=== PATIENT | female | born 1995 | race Caucasian/White ===

== ENCOUNTER 2017-08-03 18:44 | Emergency (ER) | payer BC, SELFPAY | END 2017-08-03 22:00 | disposition left against medical advice (07) | LOC: ER 21:59 | PROVIDERS: Emergency Provider Emergency Medicine; Family Provider Family Medicine | DX: Z53.29 Procedure and treatment not carried out because of patient's decision for other reasons (principal) | CPT/HCPCS: 99211 ==

== ENCOUNTER 2019-08-10 04:38 | Inpatient (IN) ==
--- NOTE | 2019-08-10 05:16 | Progress Note ---
Internal Medicine - PN: Subj *Date: 08/10/19 *Time: 05:12 Interval history: This 24-year-old 1, para 0, Ab0 white female has had care in [place] ( records from there have been entered). She states that she began leaking fluid approximately 2 hours prior to arriving here and has been claudia regularly and strongly since. She states that her care has been uneventful and that she is GBS negative. EDC is 08/13/2019 (39-4/7 weeks). Medical and surgical histories are completely negative. Cervix is completely effaced, 4 cm, with a bulging bag and a presenting vertex at 0 station. AmniSure has been done (results pending). Impression: Active labor at term. Plan is for an epidural and anticipated vaginal delivery. Exam I & O for Last 24 hours: Intake & Output 08/07/19 08/08/19 08/09/19 08/10/19 11:59 11:59 11:59 11:59 Weight 144 lb
[2019-08-10 05:18] LABS: Microscopic, Urine URINE MICROSCOPIC (MICROSCOPIC)
[2019-08-10 05:27] LABS: Basophils % 0.1 % (0.1-2.0); Eosinophils # 0.1 K/mm3 (0.0-0.4); Eosinophils % 0.6 % (0.1-12.0); Hematocrit 36.2 % (37.0-47.0); Hemoglobin 12.4 g/dL (12.2-16.2); Lymphocytes # 2.1 K/mm3 (0.7-4.5); Lymphocytes % 16.5 % (10-50); Mean Corpuscular HGB Conc 34.2 g/dL (31.8-35.4); Mean Corpuscular Volume 84.4 fl (81-99); Mean Platelet Volume 9.7 fl (7.4-10.4); Monocytes # 0.6 K/mm3 (0.1-1.0); Monocytes % 4.5 % (1.7-9.3); Neutrophils # 10.1 K/mm3 (1.8-7.8); Neutrophils % 78.3 % (37.0-80.0); Platelet Count 280 K/mm3 (142-424); Red Blood Count 4.29 M/mm3 (4.20-5.40); Red Cell Distribution Width 13.6 % (11.5-17.5); White Blood Count 12.8 K/mm3 (4.8-10.8)
[2019-08-10 05:43] LABS: Appearance,Urine CLEAR (Clear); Bilirubin,Urine Negative (Negative); Blood, Urine Negative (Negative); Color,Urine YELLOW (Yellow); Glucose,Urine (UA) Negative (Negative); Ketones,Urine Negative (Negative); Leukocyte Esterase,Urine 1+ (Negative); Protein,Urine Negative (Negative); Urobilinogen,Urine 0.2 EU/dl (0.2)
[2019-08-10 05:43] LABS: Anion Gap 16.8 mEq/L (5-15); Calcium 8.1 mg/dL (8.5-10.1)
[2019-08-10 05:46] LABS: Bacteria,Urine 1+ /lpf
[2019-08-10 05:57] LABS: Amphetamine/Metha Screen,Urine Negative ng/mL (<1000); Barbiturates Screen,Urine Negative ng/mL (<200); Benzodiazepines Screen,Urine Negative ng/mL (<200); Cannabinoid Screen,Urine Negative ng/mL (<50); Cocaine Screen,Urine Negative ng/mL (<300); Methadone Screen,Urine Negative ng/mL (<300); Opiate Screen,Urine Negative ng/mL (<300); Phencyclidine Screen,Urine Negative ng/mL (<25)
--- NOTE | 2019-08-10 06:16 | Progress Note ---
Internal Medicine - PN: Subj *Date: 08/10/19 *Time: 06:14 (Epidural is now in situ and working well. Cervix is now comple tely effaced, 5 cm, with the presenting vertex at 0 station. The baby experienced a deep deceleration to 60 bpm but with oxygen and appropriate turning, baseline is now good at 1 20-1 30 with good variability and no decelerations. Amnioinfusion has been begun.) Exam Vital signs and Labs for Last 24 Hours: Laboratory Results - last 24 hr 08/10/19 04:45: Urine Color Yellow, Urine Appearance Clear, Urine pH 7.0, Ur Specific Ames 1.010, Urine Protein Negative, Urine Glucose (UA) Negative, Urine Ketones Negative, Urine Blood Negative, Urine Nitrate Negative, Urine Bilirubin Negative, Urine Urobilinogen 0.2, Ur Leukocyte Esterase 1+ A, Urine WBC 5-10, Ur Squamous Epith Cells 5-10, Urine Bacteria 1+ 08/10/19 04:45: Urine Opiates Screen Negative, Urine Methadone Screen Negative, Ur Barbituates Screen Negative, Ur Phencyclidine Scrn Negative, Ur Amphetamines Screen Negative, U Benzodiazepines Scrn Negative, Urine Cocaine Screen Negative, U Marijuana (THC) Screen Negative 08/10/19 04:55: WBC 12.8 H, RBC 4.29, Hgb 12.4, Hct 36.2 L, MCV 84.4, MCH 28.9, MCHC 34.2, RDW 13.6, Plt Count 280, MPV 9.7, Neut % (Auto) 78.3, Lymph % (Auto) 16.5, Hendry % (Auto) 4.5, Eos % (Auto) 0.6, Baso % (Auto) 0.1, Neut # (Auto) 10.1 H, Lymph # (Auto) 2.1, Hendry # (Auto) 0.6, Eos # (Auto) 0.1, Baso # (Auto) 0.0 08/10/19 04:55: Sodium 135 L, Potassium 3.8, Chloride 104, Carbon Dioxide 18 L, Anion Gap 16.8 H, BUN 4 L, Creatinine 0.56, Estimated Creat Clear 162, Estimated GFR 135, Est GFR ( Amer) 164, Glucose 89, Calcium 8.1 L I & O for Last 24 hours: Intake & Output 01/12/2008/08/19 08/09/19 08/10/19 11:59 11:59 11:59 11:59 Weight 144 lb
--- NOTE | 2019-08-10 06:25 | Progress Note ---
[facility] Anesthesia Checklist - Patient Identification Patient Identification: Arm Band - Structural Data Admitted From: Inpatient Planned Operative Procedure/s: labor epidural Consent for Planned Operative Procedure(s) Verified: Yes Verified Documents: History and Physical - Additional verifications Anesthesia Reactions: No - Airway Assessment C-Spine Mobility Assessed: Yes TMJ Mobility Assessed: Yes Dentition: Good Dentition - Neurological Assessment Level of Consciousness: Awake, Alert - Anesthesia Plan Anesthesia Risk discussed: Yes Anesthesia Plan: Verified ASA Class: II Anesthesia Type: Epidural [facility] History I have reviewed the patient's past medical history: Yes Medical History: Denies:: Diabetes Mellitus Type 1, Diabetes Mellitus Type 2 *Have you ever received a pneumonia vaccine?: No *Have you received a flu vaccine this season?: No Anesthesia experience/problems:: nac Other Surgeries: Yes: No Previous Surgery - *Social History Smoking Status: Current every day smoker Tobacco Type: cigarettes # Packs/Day (cigarettes): 1 Alcohol Intake: former Alcohol Intake Frequency:: holidays/special occasions only Substance Use Type: marijuana *Occupational Status:: employed Housing: house *Travel in the last 8 weeks: None Family Hx:: No significant family history
--- NOTE | 2019-08-10 15:40 | Procedure Note ---
- Delivery Note Delivery Date:: 08/10/19 Delivery Time:: 09:41 Anesthesia Type: Epidural Was labor medically induced?: No Gestational age (weeks): 39 Infant delivered prior to 39 weeks?: No Gender: Female at 1 minute: 7 at 5 minutes: 9 Delivery Procedure:: Spontaneous vaginal delivery of liveborn female over intact perineum. Delivery uncomplicated No nuchal cord or shoulder dystocia with delivery placed in POLLY with mother immediately after umbilical cord clamped/cut, with standard nursing assessment performed Apgars: 7 & 9 Placenta spontaneously expressed and examined; noted to be complete/intact. Vulva, vagina, and cervix inspected; 1st degree perineal and right labial laceration repaired with 2-0 vicryl EBL: 300 cc All sponge/needle/instrument counts correct at conclusion of procedure Disposition: Mom/baby stable to recovery in [facility]
[2019-08-11 06:57] LABS: Hemoglobin 9.5 g/dL (12.2-16.2)
--- NOTE | 2019-08-11 08:56 | Progress Note ---
Internal Medicine - PN: Subj *Date: 08/11/19 *Time: 08:53 Interval history: PPD #1 No complaints Tolerating regular diet, ambulating and voiding without difficulty Lochia appropriate Asymptomatic with anemia Exam Vital signs and Labs for Last 24 Hours: Temp Pulse Resp BP Pulse Ox 98.8 F 76 18 114/75 99 08/11/19 08:10 08/11/19 08:10 08/11/19 08:10 08/11/19 08:10 08/11/19 08:10 Laboratory Results - last 24 hr 08/11/19 06:34: Hgb 9.5 L, Hct 29.0 L I & O for Last 24 hours: Intake & Output 08/08/19 08/09/19 08/10/19 08/11/19 11:59 11:59 11:59 11:59 Weight 144 lb Microbiology Reports for the Last 24 Hours: Microbiology 08/10/19 04:45 Urine,Clean Catch Urine Culture - Preliminary Narrative: CONSTITUTIONAL: no acute distress HEENT: mucous membranes moist PULMONARY: breathing unlabored without audible wheezes CV: no tachycardia or visible JVD; normal LE peripheral pulses ABD: soft, NT/ND, no guarding : fundus firm at/below umbilicus SKIN: no visible rash or lesions EXT: 1+ edema LEs NEURO: alert/oriented, no altered mental status PSYCH: appropriate mood and demeanor without visible anxiety/depression Assessment and Plan - Assessment and plan all Dx Assessment and Plan for all problems:: PPD #1 Routine care PNV with FeSO4 Anticipate discharge tomorrow
--- NOTE | 2019-08-12 09:58 | Discharge Summary ---
General - General Admission date:: 08/10/19 Discharge date: 08/12/19 HPI HPI: S/P normal course uncomplicated Discharged home on PPD #2 in stable condition Ambulating and voiding without difficulty Tolerating regular diet Lochia appropriate and pain control sufficient Advised that she may f/u with primary OB or our office for care Hospital Course Hospital Course: per HPI Rhogam Administration: Not Indicated Objective Vital signs: Temp Pulse Resp BP Pulse Ox 98.2 F 80 20 109/66 L 100 08/11/19 16:30 08/11/19 16:30 08/11/19 16:30 08/11/19 16:30 08/11/19 16:30 Narrative: CONSTITUTIONAL: no acute distress HEENT: mucous membranes moist PULMONARY: breathing unlabored without audible wheezes CV: no tachycardia or visible JVD; normal LE peripheral pulses ABD: soft, NT/ND, no guarding : fundus firm at/below umbilicus SKIN: no visible rash or lesions EXT: 1+ edema LEs NEURO: alert/oriented, no altered mental status PSYCH: appropriate mood and demeanor without visible anxiety/depression Results Labs on day of discharge: Labs from last 24 hours 08/10/19 04:55 Rubella IgG Antibody 6.77 Preliminary micro results at discharge 08/10/19 04:45 Urine Culture - Preliminary Urine,Clean Catch DS: Diagnosis - Discharge Diagnosis (1) Active labor at term Status: Acute (2) Anemia associated with acute blood loss Status: Acute (3) with care elsewhere Status: Acute (4) Vaginal delivery Status: Acute Discharge Plan - Patient Discharge Instructions ACTIVITY: Limited activity DIET: regular diet Additional Instructions: NOTHING IN THE VAGINA FOR 6 WEEKS NO HEAVY LIFTING NO STRENUOUS ACTIVITY. Patient Instructions: Depression, Hemorrhage, [facility] Post Discharge Instructions - Follow up Plan Follow up with: Nate Zimmer [Referring] - 08/26/19 2:45 pm (arrive at 1430) Disposition: Home, Self-Longterm Medications: Home Medications Medication Instructions Recorded Confirmed Type Famotidine [Pepcid 20mg Tablet] 20 mg PO BID 08/10/19 08/10/19 History Prescriptions/Medication Reconciliation: Continued Famotidine [Pepcid 20mg Tablet] 20 mg PO BID - Problem Reconciliation Problems Reviewed?: Yes
[2019-08-12 10:47] VITALS: BP 114/57
== END 2019-08-12 11:02 | disposition home or self-care (01) | DRG 807 ==
LOC: OBOUT 04:38 → OB 04:41
PROVIDERS: ADMIT Obstetrics & Gynecology; ATTEND Obstetrics & Gynecology
CPT/HCPCS: C1758

== ENCOUNTER → 2021-08-16 19:18 | Outpatient (CLI) | payer OTHER, SELFPAY | PROVIDERS: Visit Provider Nurse Practitioner Family | DX: Z20.822 Contact with and (suspected) exposure to COVID-19 (principal); J02.9 Acute pharyngitis, unspecified | CPT/HCPCS: C9803; U0003; U0005 ==

== ENCOUNTER 2021-10-14 16:26 | Emergency (ER) | payer OTHER, SELFPAY ==
[2021-10-14 16:27] VITALS: BP 119/76; PULSE 94; RESP 18; TEMP 37; O2SAT 99; BMI 17.7
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
[2021-10-14 18:23] VITALS: BP 112/73; PULSE 95; O2SAT 97
--- NOTE | 2021-10-14 18:38 | PC.NURSE ---
Patient to radiology with dialysis tech
--- NOTE | 2021-10-14 18:42 | PC.NURSE ---
patient back from Radiology
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
[2021-10-14 19:44] VITALS: BP 114/72; PULSE 92; RESP 18; TEMP 37; O2SAT 97
== END 2021-10-14 19:46 | disposition home or self-care (01) ==
PROVIDERS: Emergency Provider Emergency Medicine; PCP Family Medicine
DX: M54.6 Pain in thoracic spine (principal); Z3A.11 11 weeks gestation of pregnancy; V47.0XXA Car driver injured in collision with fixed or stationary object in nontraffic accident, initial encounter; Y92.413 State road as the place of occurrence of the external cause
CPT/HCPCS: 71046; 72072; 99283

== ENCOUNTER 2022-08-01 14:36 | Emergency (ER) | payer OTHER, SELFPAY ==
[2022-08-01 16:03] VITALS: BP 120/60; PULSE 82; RESP 18; TEMP 36.8; O2SAT 98; BMI 22.3
--- NOTE | 2022-08-01 16:31 | EXP.UTC ---
Discharge Plan Disposition Patient Disposition: Home, Self-Care Condition: Good Prescriptions Prescriptions: No Action azithromycin 250 mg tablet 250 mg PO QDAY 5 Days Qty: 6 0RF Rx Instructions: ii tabs day one and i tab days 2-5 albuterol sulfate 90 mcg/actuation HFA aerosol inhaler 2 puff INHALATION Q6H PRN (Reason: wheezing) 7 Days Qty: 6.7 0RF Rx Instructions: administer with spacer Referrals Follow up/Referrals: Kaushal Collins MD [Primary Care Provider] - See instructions Activity Restrictions/Add. Instructions Additional Instructions/Restrictions: *Monitor Temp, Over the counter Motrin or Tylenol as directed/as needed Tylenol every 4 hours and Motrin every 6 hours (as long as your family doctor has told you that you can take it) for fever or pain. and straight to ER if unable to lower temp less than 101.0 after medication given *Warm salt water gargles may help to soothe the throat *Throat Lozenges? *Warm fluids like tea with honey may help to soothe the throat? *Sleep elevated *Humidifier/Vaporizer Follow up IMMEDIATELY for new or worsening symptoms or no Noticeable improvement over the next 48-72 hours. 911 for difficulty breathing or swallowing You were tested for today for Upper Respiratory Panel with COVID19 your test result should be back in the next 24-48 hours, you may check your results on the [facility] [address] [facility] Clinical Impressions Clinical Impression: Viral syndrome Instructions Patient Instructions: DI for Viral Syndrome Discharge ED Provider: Katrin Duncan [facility] HPI General Stated complaint: covid test headache body aches Mode of Arrival: Ambulatory Source of Information: Patient Limitations: No Limitations Time Seen by Provider: 08/01/22 16:31 Description of Symptoms (Recalled from Triage Doc. by RN): pt comes in with c/o no taste or smell, vomitting, headache, back ache. symptoms began a few days ago HEENT Symptoms (Recalled from RN notes): Yes Resp Symptoms (Recalled from RN notes): Yes Skin Symptoms (Recalled from RN notes): No MS Symptoms (Recalled from RN notes): No Functional Status (Recalled from RN notes): n/a History of Present Illness Provider Complaint: Patient states that she feels like she did when she had COVID States that she has been not able to taste or smell anything, nausea vomiting headache and achy like feeling in her back States that she wanted to get tested for COVID Related Data Previous Rx's Medication Instructions Recorded albuterol sulfate 90 mcg/actuation 2 puff inhalation Q6H PRN wheezing 08/16/21 aerosol inhaler 7 days #6.7 grams azithromycin 250 mg tablet 250 mg PO QDAY resp infection 5 08/16/21 days #6 tabs Allergies Allergy/AdvReac Type Severity Reaction Status Date / Time No Known Allergies Allergy Verified 08/01/22 16:06 Worker's Comp Is this a Worker's Comp case?: No [facility] Disclaimer: The information contained in this section may have been updated after the patient was seen, as this information can be updated by other users. Social History Smoking Status: Current every day smoker tobacco type: cigarettes packs per day: 1 alcohol intake: former substance use type: marijuana current occupational status: employed Travel in the last 8 weeks: None household members: significant other housing: house ROS Obtained: Yes All systems reviewed & no additional complaints except as documented and Yes Systems reviewed as appropriate & no additional complaints except as documented Constitutional Constitutional: Reports system reviewed and no additional complaints, except as documented, Reports as per HPI, Reports body ache and Reports headache(s) ENT Ears, Nose, Mouth, and Throat: Reports system reviewed and no additional complaints, except as documented, Reports as per HPI, Reports headache(s) and Reports other (no taste or smel
[2022-08-01 16:40] LABS: UTC Pregnancy Test, Urine Negative (Negative)
[2022-08-01 16:41] LABS: UTC Influenza A Antigen Negative (Negative); UTC Influenza B Antigen Negative (Negative)
[2022-08-01 17:12] VITALS: BP 120/60; PULSE 82; RESP 18; TEMP 36.8
== END 2022-08-01 17:14 | disposition home or self-care (01) ==
PROVIDERS: Emergency Provider Nurse Practitioner; PCP Family Medicine
DX: B34.9 Viral infection, unspecified (principal)
CPT/HCPCS: 81025; 87804; 99212; C9803; G0463; U0003; U0005

== ENCOUNTER 2022-08-06 15:55 | Emergency (ER) | payer OTHER, SELFPAY ==
--- NOTE | 2022-08-06 18:23 | PC.NURSE ---
YARIEL PIMENTEL at
--- NOTE | 2022-08-06 18:26 | CT_ITS ---
PROCEDURE INFORMATION: Exam: CT Neck With Contrast Exam date and time: 08/06/2022 8:15 PM Age: 27 years old Clinical indication: Throat pain; Patient HX: Recent covid; Additional info: Pain, voice chainge, fever, swelling TECHNIQUE: Imaging protocol: Computed tomography of the neck with contrast. Radiation optimization: All CT scans at this facility use at least one of these dose optimization techniques: automated exposure control; mA and/or kV adjustment per patient size (includes targeted exams where dose is matched to clinical indication); or iterative reconstruction. Contrast material: ISOVUE; Contrast volume: 75 ml; Contrast route: IV; COMPARISON: No relevant prior studies available. FINDINGS: Pharynx: There is significant soft tissue edema and enhancement of the bilateral adenoid and tonsillar soft tissues compatible with tonsillopharyngitis. No loculated fluid collection seen to suggest abscess. Larynx: Unremarkable. Epiglottis is normal. Prevertebral and retropharyngeal spaces: Unremarkable. Salivary glands: Normal. Glands are normal in size. Thyroid: Normal. No enlarged or calcified nodules. Lymph nodes: Moderate bilateral jugular chain lymphadenopathy noted. Trachea: Visualized trachea is unremarkable. Lungs: Unremarkable as visualized. Bones/joints: Unremarkable. No acute fracture. Soft tissues: Surrounding soft tissues appear unremarkable. Paranasal sinuses: There is moderate mucosal thickening in the bilateral maxillary sinuses. IMPRESSION: Findings of bilateral tonsillopharyngitis with associated moderate jugular chain lymphadenopathy. No evidence of abscess. Moderate findings of chronic bilateral maxillary sinusitis incidentally noted.
[2022-08-06 18:30] VITALS: BP 104/74; PULSE 103; RESP 18; TEMP 37.4; O2SAT 98; BMI 25.7
[2022-08-06 18:46] LABS: Influenza A, PCR Not Detected (NotDetected); Influenza B, PCR Not Detected (NotDetected)
--- NOTE | 2022-08-06 18:58 | HMH.EDGENADL ---
Discharge Plan Disposition Patient Disposition: Home, Self-Care Condition: Good Prescriptions Prescriptions: New clindamycin HCl 300 mg capsule 300 mg PO BID 10 Days Qty: 20 0RF No Action azithromycin 250 mg tablet 250 mg PO QDAY 5 Days Qty: 6 0RF Rx Instructions: ii tabs day one and i tab days 2-5 albuterol sulfate 90 mcg/actuation HFA aerosol inhaler 2 puff INHALATION Q6H PRN (Reason: wheezing) 7 Days Qty: 6.7 0RF Rx Instructions: administer with spacer Referrals Follow up/Referrals: Kaushal Collins MD [Primary Care Provider] - See instructions Activity Restrictions/Add. Instructions Additional Instructions/Restrictions: You were evaluated in the emergency department today. Please cotton picker your prescription for antibiotics at the pharmacy and take the full course as prescribed. Follow-up with your primary care provider over the next 48 hours. Take Tylenol and ibuprofen at home as needed for pain and fever. Return to the emergency department for any new or worsening symptoms. Clinical Impressions Clinical Impression: Tonsillopharyngitis Instructions Patient Instructions: DI for Pharyngitis/Tonsillopharyngitis -- Adult Discharge ED Provider: Renée George General Adult HPI General Chief complaint: Upper Respiratory Infection Stated complaint: covid + sore throat, body aches, Time Seen by Provider: 08/06/22 18:14 History of Present Illness HPI narrative: This patient is a 27-year-old female presented to the emergency department for evaluation of severe sore throat. She states that she developed upper respiratory symptoms initially to 2 weeks ago, and approximately week ago she tested positive for COVID-19. She states that she had been doing better and had actually gotten her taste and smell back and was having no pain yesterday, but today she woke up with really severe sore throat. She states that she has had difficulty swallowing and has noted voice changes. She states that she feels like her throat is extremely swollen. She states that she is also had fevers today, which she had not been having. Nothing seems to make her symptoms better or worse. Related Data Previous Rx's Medication Instructions Recorded albuterol sulfate 90 mcg/actuation 2 puff inhalation Q6H PRN wheezing 08/16/21 aerosol inhaler 7 days #6.7 grams azithromycin 250 mg tablet 250 mg PO QDAY resp infection 5 08/16/21 days #6 tabs clindamycin HCl 300 mg capsule 300 mg PO BID 10 days #20 caps 08/06/22 Allergies Allergy/AdvReac Type Severity Reaction Status Date / Time No Known Allergies Allergy Verified 08/01/22 16:06 [facility] Disclaimer: The information contained in this section may have been updated after the patient was seen, as this information can be updated by other users. Social History Smoking Status: Current every day smoker tobacco type: cigarettes packs per day: 1 alcohol intake: former substance use type: marijuana current occupational status: employed Travel in the last 8 weeks: None household members: significant other housing: house ROS Obtained: Yes All systems reviewed & no additional complaints except as documented 14 point review of systems obtained and negative except as mentioned in HPI. Physical Exam General General appearance: alert and in no apparent distress Head Head exam: atraumatic and normocephalic Eye Eye exam: Present normal appearance, PERRL and EOMI ENT ENT exam: Present mucous membranes moist Expanded ENT Exam External ear exam: Present normal external inspection and other (Slightly muffled voice) Nasal speculum exam: Bilateral: normal Open Mouth Image: 1. Tonsillar swelling with uvular deviation to patient's left Neck Neck exam: Present normal inspection and full ROM Chest Chest inspection: Present normal inspection Respiratory Respiratory exam: Present normal lung sounds bilater
[2022-08-06 19:14] VITALS: BP 111/57; PULSE 80; O2SAT 98
[2022-08-06 19:15] LABS: Coronavirus 19, PCR Detected (NotDetected)
[2022-08-06 19:16] LABS: Basophils # 0.1 K/mm3 (0-0.2); Basophils % 0.3 % (0.1-2.0); Eosinophils # 0.2 K/mm3 (0.0-0.4); Eosinophils % 1.1 % (0.1-12.0); Hemoglobin 12.4 g/dL (12.2-16.2); Lymphocytes % 6.5 % (10-50); Mean Corpuscular HGB Conc 33.5 g/dL (31.8-35.4); Mean Corpuscular Hemoglobin 28.7 pg (27.0-31.2); Mean Corpuscular Volume 85.8 fl (81-99); Mean Platelet Volume 8.1 fl (7.4-10.4); Monocytes # 0.5 K/mm3 (0.1-1.0); Monocytes % 3.2 % (1.7-9.3); Neutrophils # 13.8 K/mm3 (1.8-7.8); Neutrophils % 88.8 % (37.0-80.0); Platelet Count 343 K/mm3 (142-424); Red Blood Count 4.31 M/mm3 (4.20-5.40); Red Cell Distribution Width 13.5 % (11.5-17.5); White Blood Count 15.5 K/mm3 (4.8-10.8)
[2022-08-06 19:18] LABS: MANUAL DIFFERENTIAL MANUAL DIFFERENTIAL (MANUAL DIFF)
[2022-08-06 19:26] LABS: Chloride 107 mmol/L (98-107); Potassium 3.6 mmoL/L (3.5-5.1); Sodium 135 mmol/L (136-145)
[2022-08-06 19:29] LABS: Alanine Aminotransferase 22 U/L (12-78); Albumin Level 3.7 g/dl (3.5-5.0); Albumin/Globulin Ratio 1.3 (1.1-1.8); Alkaline Phosphatase 63 U/L (38-126); Anion Gap 10.6 mEq/L (5-15); Aspartate Amino Transferase 29 U/L (14-36); Bilirubin,Total 0.4 mg/dl (0.2-1.3); Blood Urea Nitrogen 6 mg/dl (7-17); Calcium 8.2 mg/dl (8.4-10.2); Carbon Dioxide 21 mmol/L (22.0-30.0); Creatinine Clearance Estimated 149 mL/min (50-200); Estimated Glomerular Filt Rate 122 ml/min (>60); GFR (African American) 147 ML/MIN (>60); Globulin 2.9 g/dL (1.3-3.2); Glucose 92 mg/dl (74-100); Total Protein,Serum 6.6 g/dl (6.3-8.2)
[2022-08-06 19:33] LABS: C-Reactive Protein 45.8 mg/L (0-4)
[2022-08-06 19:34] LABS: Lactic Acid 1.3 mmol/L (0.7-2.1)
[2022-08-06 19:36] LABS: Lymphocytes % 8 % (10-50); Monocytes % 1 % (2-9); Neutrophils % 91 % (42-76); Platelet Estimate Normal; RBC Morphology Normal; Total Cells Counted 100
[2022-08-06 19:52] LABS: HCG Qualitative, Serum Negative (Negative)
[2022-08-06 19:54] LABS: Strep Scrn Group A (Rapid) Negative (Negative)
--- NOTE | 2022-08-06 19:54 | PC.NURSE ---
pt in bed, nothing needed, family at bedside
[2022-08-06 20:45] LABS: Erythrocyte Sedimentation Rate 18 mm/hr (0-20)
[2022-08-06 20:59] VITALS: BP 98/47; PULSE 115; RESP 18; TEMP 36.7; O2SAT 98
== END 2022-08-06 21:15 | disposition home or self-care (01) ==
PROVIDERS: Emergency Provider Emergency Medicine; PCP Family Medicine
DX: U07.1 COVID-19 (principal); J03.90 Acute tonsillitis, unspecified; F17.210 Nicotine dependence, cigarettes, uncomplicated; F12.90 Cannabis use, unspecified, uncomplicated; R50.9 Fever, unspecified
CPT/HCPCS: 36415; 70491; 80053; 83605; 84703; 85007; 85025; 85651; 86140; 87430; 96361; 96374; 96375; 99285; C9803; J2405; Q9967; U0003; U0005

== ENCOUNTER 2022-08-25 08:04 | Emergency (ER) | payer OTHER, SELFPAY ==
[2022-08-25 08:13] VITALS: BP 114/71; PULSE 99; RESP 20; TEMP 36.9; O2SAT 95; BMI 21.2
--- NOTE | 2022-08-25 08:18 | XR_ITS ---
FINAL REPORT CLINICAL HISTORY: sob-- congestion FINDINGS: PA and lateral views of the chest are obtained. There is no prior exam for comparison. The cardiac and mediastinal silhouettes are within normal limits. The lungs are clear. There is no pleural effusion, pneumothorax, or acute osseous abnormality. IMPRESSION: No radiographic evidence of acute cardiac or pulmonary disease. Reviewed, Interpreted and Dictated by Cathie Nair MD Transcribed by Edd Dobbs Authenticated and [facility]
--- NOTE | 2022-08-25 08:34 | EXP.UTC ---
Discharge Plan Disposition Patient Disposition: Home, Self-Care Condition: Good Prescriptions Prescriptions: New benzonatate [benzonatate] 100 mg capsule 100 mg PO TIDP PRN (Reason: Cough) Qty: 30 0RF amoxicillin-pot clavulanate 500-125 mg tablet 1 tab PO BID Qty: 20 0RF methylprednisolone 4 mg Tablets,Dose Pack 4 mg PO DIRECTED Qty: 21 0RF Referrals Follow up/Referrals: Kaushal Collins MD [Primary Care Provider] - See instructions Activity Restrictions/Add. Instructions Additional Instructions/Restrictions: Drink plenty of fluids. Take tylenol or ibuprofen for pain or fever. Take the medications as directed. Follow up with your regular doctor. GO TO THE ER FOR ANY WORSENING SYMPTOMS Don't start the oral steroids until tomorrow, since you had the shot here today. Clinical Impressions Clinical Impression: Acute bronchitis Stand Alone Forms Stand Alone Forms: Work/School Release Instructions Patient Instructions: Acute Bronchitis, DI for Acute Bronchitis Discharge ED Provider: Nate Stafford [facility] General Stated complaint: SOA fluid in ears back pain Mode of Arrival: Ambulatory Source of Information: Patient Limitations: No Limitations Time Seen by Provider: 08/25/22 08:34 Description of Symptoms (Recalled from Triage Doc. by RN): wheezing, feels like cannot take a full breath, ear pain HEENT Symptoms (Recalled from RN notes): Yes Resp Symptoms (Recalled from RN notes): No Skin Symptoms (Recalled from RN notes): No MS Symptoms (Recalled from RN notes): No Functional Status (Recalled from RN notes): n/a History of Present Illness Provider Complaint: She states that she has had sinus congestion and ear pain for the past 2 days. She has also had chest tightness and chest congestion. She does have a history of asthma. Related Data Previous Rx's Medication Instructions Recorded amoxicillin 500 mg-potassium 1 tab PO BID #20 tabs 08/25/22 clavulanate 125 mg tablet benzonatate 100 mg capsule 100 mg PO TIDP PRN Cough #30 caps 08/25/22 methylprednisolone 4 mg tablets in 4 mg PO DIRECTED #21 tabs 08/25/22 a dose pack Allergies Allergy/AdvReac Type Severity Reaction Status Date / Time No Known Allergies Allergy Verified 08/25/22 08:28 Worker's Comp Is this a Worker's Comp case?: No [facility] Disclaimer: The information contained in this section may have been updated after the patient was seen, as this information can be updated by other users. Social History Smoking Status: Current every day smoker tobacco type: cigarettes packs per day: 1 alcohol intake: former substance use type: marijuana current occupational status: employed Travel in the last 8 weeks: None household members: significant other housing: house ROS Obtained: Yes All systems reviewed & no additional complaints except as documented Constitutional Constitutional: Reports chills and Reports fever(s) Eyes Eyes: Denies eye discharge ENT Ears, Nose, Mouth, and Throat: Reports as per HPI Cardiovascular Cardiovascular: Denies chest pain Respiratory Respiratory: Denies chest congestion and Reports cough Gastrointestinal Gastrointestingal: Reports nausea; Denies abdominal pain, constipation, cramping, diarrhea or vomiting Musculoskeletal Musculoskeletal: Denies arthralgias Integumentary/Breasts Skin/Breast: Denies rash Neurologic Neurologic: Denies paresthesias Physical Exam General General appearance: alert and in no apparent distress Head Head exam: atraumatic, normocephalic and normal inspection Eye Eye exam: Present normal appearance, PERRL and EOMI ENT ENT exam: Present normal exam, normal oropharynx, mucous membranes moist, TM's normal bilaterally and normal external ear exam Neck Neck exam: Present normal inspection, full ROM and trachea midline; Absent meningismus or lymphadenopathy Chest Chest inspection: Presen
[2022-08-25 09:03] VITALS: PULSE 100; PULSE 98
[2022-08-25 09:26] VITALS: BP 114/71; PULSE 99; RESP 20; TEMP 36.9; O2SAT 95
[2022-08-25 09:55] LABS: Adenovirus,PCR Not Detected (NotDetected); Bordetella Pertussis Not Detected (NotDetected); Chlamydophila Pneumoniae, PCR Not Detected (NotDetected); Coronavirus 19, PCR Not Detected (NotDetected); Coronavirus 229E Not Detected (NotDetected); Coronavirus OC43 Not Detected (NotDetected); Coronovirus HKU1,PCR Not Detected (NotDetected); Human Metapneumovirus Not Detected (NotDetected); Influenza A, PCR Not Detected (NotDetected); Influenza AH1, 2009 Not Detected (NotDetected); Influenza AH1, PCR Not Detected (NotDetected); Influenza AH3,PCR Not Detected (NotDetected); Influenza B, PCR Not Detected (NotDetected); Mycoplasma Pneumoniae, PCR Not Detected (NotDetected); Parainfluenza 1, PCR Not Detected (NotDetected); Parainfluenza 2, PCR Not Detected (NotDetected); Parainfluenza 3, PCR Not Detected (NotDetected); Parainfluenza 4, PCR Not Detected (NotDetected); Respiratory Syncytial Virus Not Detected (NotDetected)
[2022-08-25 12:14] LABS: Coronavirus NL63 Detected (NotDetected); Rhinovirus/Enterovirus Detected (NotDetected)
== END 2022-08-25 09:25 | disposition home or self-care (01) ==
PROVIDERS: Emergency Provider Nurse Practitioner Family; PCP Family Medicine
DX: J20.8 Acute bronchitis due to other specified organisms (principal); B34.1 Enterovirus infection, unspecified
CPT/HCPCS: 71046; 87581; 87632; 87798; 94640; 96372; 99213; 99214; C9803; G0463; U0003; U0005

== ENCOUNTER 2022-11-19 10:59 | Emergency (ER) | payer OTHER, SELFPAY ==
[2022-11-19 11:00] VITALS: BP 116/74; PULSE 91; RESP 19; TEMP 36.8; O2SAT 98; BMI 19.8
--- NOTE | 2022-11-19 11:25 | EXP.UTC ---
Discharge Plan Disposition Patient Disposition: Home, Self-Care Condition: Good Prescriptions Prescriptions: New azithromycin [Zithromax Z-Dusty] 250 mg tablet See Rx Instructions .ROUTE .COMPLEX 5 Days Qty: 6 0RF Rx Instructions: For 250 mg dose pack: take 500 mg today (day 1), then 250 mg for 4 days (days 2-5) No Action buspirone 5 mg tablet 5 mg PO DAILY norgestimate-ethinyl estradiol [Sprintec (28)] 0.25-35 mg-mcg tablet 1 tab PO DAILY Referrals Follow up/Referrals: Kaushal Collins MD [Primary Care Provider] - See instructions Activity Restrictions/Add. Instructions Additional Instructions/Restrictions: *Monitor Temp, Over the counter Motrin or Tylenol as directed/as needed Tylenol every 4 hours and Motrin every 6 hours (as long as your family doctor has told you that you can take it) for fever or pain. and straight to ER if unable to lower temp less than 101.0 after medication given *Warm salt water gargles may help to soothe the throat *Throat Lozenges? *Warm fluids like tea with honey may help to soothe the throat? *Sleep elevated *Humidifier/Vaporizer *If you did not take Penicillin shot or was unable to, start taking antibiotic immediately and make sure that you take it for the FULL length of time although you should start to feel better in 24-48 hours *change toothbrush and toothpaste 24-48 hours after starting to take antibiotics so you do not reinfect yourself Monitor Temp. Tylenol and/or Ibuprofen as needed. ER if fever is no less than 101 despite alternating Tylenol and Ibuprofen * Encourage fluids, water, Gatorade, powerade, pedialyte if /toddler/or child *Cold fluids, popsicles and ice cream may feel good on his throat Follow up IMMEDIATELY for new or worsening symptoms or no Noticeable improvement over the next 48-72 hours. 911 for difficulty breathing or swallowing Clinical Impressions Clinical Impression: Strep throat Instructions Patient Instructions: Strep Throat, DI for Strep Throat Discharge ED Provider: Katrin Duncan [facility] [place] HPI General Stated complaint: Sore throat, chills Mode of Arrival: Ambulatory Source of Information: Patient Limitations: No Limitations Time Seen by Provider: 11/19/22 11:25 Description of Symptoms (Recalled from Triage Doc. by RN): sore throat, and white patches in throat HEENT Symptoms (Recalled from RN notes): Yes Resp Symptoms (Recalled from RN notes): No Skin Symptoms (Recalled from RN notes): No MS Symptoms (Recalled from RN notes): No Functional Status (Recalled from RN notes): n/a History of Present Illness Provider Complaint: Patient states that she has been having sore throat and feeling bad for several days and noticed white patches on her throat and thinks she may have strep throat Related Data Home Medications Medication Instructions Recorded Confirmed buspirone 5 mg tablet 5 mg PO DAILY . 11/19/22 11/19/22 norgestimate 0.25 mg-ethinyl 1 tab PO DAILY control 11/19/22 11/19/22 estradiol 35 mcg tablet (Sprintec (28)) Previous Rx's Medication Instructions Recorded azithromycin 250 mg tablet See Rx Instructions PO .COMPLEX 5 11/19/22 (Zithromax Z-Dusty) days #6 tabs Allergies Allergy/AdvReac Type Severity Reaction Status Date / Time No Known Allergies Allergy Verified 11/19/22 11:22 Worker's Comp Is this a Worker's Comp case?: No [facility] Disclaimer: The information contained in this section may have been updated after the patient was seen, as this information can be updated by other users. Social History Smoking Status: Current every day smoker tobacco type: cigarettes packs per day: 1 alcohol intake: former substance use type: marijuana current occupational status: employed Travel in the last 8 weeks: None household members: significant other housing: house ROS Obtained: Yes All systems reviewed
[2022-11-19 11:34] LABS: UTC Strep Screen (Rapid) Positive (Negative)
[2022-11-19 11:54] VITALS: BP 116/74; PULSE 91; RESP 19; TEMP 36.8; O2SAT 98
== END 2022-11-19 11:53 | disposition home or self-care (01) ==
PROVIDERS: Emergency Provider Nurse Practitioner; PCP Family Medicine
DX: J02.0 Streptococcal pharyngitis (principal); F17.210 Nicotine dependence, cigarettes, uncomplicated
CPT/HCPCS: 87880; 99212; 99214; G0463

== ENCOUNTER 2023-06-15 18:33 | Emergency (ER) | payer OTHER, SELFPAY ==
[2023-06-15 18:50] VITALS: BP 136/88; PULSE 89; RESP 18; TEMP 37.2; O2SAT 99; BMI 16.7
--- NOTE | 2023-06-15 18:55 | EXP.UTC ---
Discharge Plan Disposition Patient Disposition: Home, Self-Care Condition: Good Prescriptions Prescriptions: New phenazopyridine [Pyridium] 200 mg tablet 200 mg PO Q8H 2 Days Qty: 6 0RF ciprofloxacin HCl [Cipro] 500 mg tablet 500 mg PO BID 7 Days Qty: 14 0RF ondansetron 4 mg Tablet,Disintegrating 4 mg PO Q8H PRN (Reason: Nausea) Qty: 12 0RF No Action norgestimate-ethinyl estradiol [Sprintec (28)] 0.25-35 mg-mcg tablet 1 tab PO DAILY Referrals Follow up/Referrals: Nate Nicole MD [Primary Care Provider] - See instructions Activity Restrictions/Add. Instructions Additional Instructions/Restrictions: Drink plenty of fluids. Take tylenol or ibuprofen for pain or fever. Take the medications as directed. Follow up with your regular doctor. GO TO THE ER FOR ANY WORSENING SYMPTOMS The pyridium will make your urine turn orange, this is an expected side effect. It will stain your clothes if it comes into contact with them. We will culture the urine. That will tell what bacteria is causing your infection and which antibiotics will treat it best. Sometimes the first antibiotic we prescribe turns out to not work against different bacteria. So, make sure you follow up within 3 days if you are not getting better. Clinical Impressions Clinical Impression: UTI (urinary tract infection) Stand Alone Forms Stand Alone Forms: Work/School Release Instructions Patient Instructions: Urinary Tract Infection, Urine Culture, DI for Urinary Tract Infection (UTI) Discharge ED Provider: Nate Stafford [facility] General Stated complaint: lower left adb pain, kidney, nausea Time Seen by Provider: 06/15/23 18:55 Related Data Home Medications Medication Instructions Recorded Confirmed norgestimate 0.25 mg-ethinyl 1 tab PO DAILY control 11/19/22 06/15/23 estradiol 35 mcg tablet (Sprintec (28)) Previous Rx's Medication Instructions Recorded ciprofloxacin HCl 500 mg tablet 500 mg PO BID 7 days #14 tabs 06/15/23 (Cipro) ondansetron 4 mg disintegrating 4 mg PO Q8H PRN Nausea #12 tabs 06/15/23 tablet phenazopyridine 200 mg tablet 200 mg PO Q8H 2 days #6 tabs 06/15/23 (Pyridium) Allergies Allergy/AdvReac Type Severity Reaction Status Date / Time No Known Allergies Allergy Verified 06/15/23 19:02 [facility] Disclaimer: The information contained in this section may have been updated after the patient was seen, as this information can be updated by other users. Social History Smoking Status: Current every day smoker tobacco type: cigarettes packs per day: 1 alcohol intake: former substance use type: marijuana current occupational status: employed Travel in the last 8 weeks: None household members: significant other housing: house ROS Obtained: Yes All systems reviewed & no additional complaints except as documented Constitutional Constitutional: Reports system reviewed and no additional complaints, except as documented, Denies chills and Denies fever(s) Eyes Eyes: Denies eye discharge ENT Ears, Nose, Mouth, and Throat: Denies dysphagia, Denies sore throat and Denies throat swelling Cardiovascular Cardiovascular: Denies chest pain and Denies dyspnea Respiratory Respiratory: Denies chest congestion, Denies cough and Denies dyspnea Gastrointestinal Gastrointestingal: Denies abdominal pain, constipation, diarrhea, dysphagia, nausea or vomiting Genitourinary Female Genitourinary: Reports as per HPI, Reports dysuria, Reports urinary frequency, Denies urinary incontinence, Reports urinary hesitancy and Reports urinary urgency Musculoskeletal Musculoskeletal: Denies arthralgias and Reports back pain Integumentary/Breasts Skin/Breast: Denies rash Neurologic Neurologic: Denies paresthesias Allergic/Immunologic Allergic/Immunologic: Denies throat swelling Physical Exam General General appearance: a
[2023-06-15 19:05] LABS: Apearance,Urine Cloudy (Clear); Blood, Urine Trace (Negative); Color,Urine Yellow (Yellow); Glucose,Urine (UA) Negative (Negative); Ketones,Urine Negative (Negative); PH,Urine 7.5 (5.0-8.5); Protein,Urine 1+ (Negative)
[2023-06-15 19:06] LABS: Bilirubin,Urine Negative (Negative); UTC Leukocyte Esterase,Urine 3+ (Negative); UTC Nitrate,Urine Positive (Negative); Urobilinogen,Urine 0.2 EU/dl (0.2)
[2023-06-15 19:43] VITALS: BP 136/88; PULSE 89; RESP 18; TEMP 37.2; O2SAT 99
== END 2023-06-15 19:43 | disposition home or self-care (01) ==
PROVIDERS: Emergency Provider Nurse Practitioner Family; PCP Internal Medicine Adolescent Medicine
DX: N39.0 Urinary tract infection, site not specified (principal); R10.32 Left lower quadrant pain; R11.0 Nausea; F17.210 Nicotine dependence, cigarettes, uncomplicated
CPT/HCPCS: 81003; 87086; 96372; 99212; 99214; G0463; J0696

== ENCOUNTER 2023-09-20 18:22 | Emergency (ER) | payer OTHER, SELFPAY ==
[2023-09-20 18:45] VITALS: BP 133/65; PULSE 91; RESP 18; TEMP 36.9; O2SAT 99; BMI 20.2
[2023-09-20 19:13] LABS: UTC Strep Screen (Rapid) Negative (Negative)
--- NOTE | 2023-09-20 19:14 | ED_ITS ---
Discharge Plan Disposition Patient Disposition: Home, Self-Care Condition: Good Prescriptions Prescriptions: New azithromycin [Zithromax Z-Dusty] 250 mg tablet See Rx Instructions .ROUTE .COMPLEX 5 Days Qty: 6 0RF Rx Instructions: For 250 mg dose pack: take 500 mg today (day 1), then 250 mg for 4 days (days 2-5) methylprednisolone [Medrol (Dusty)] 4 mg tablets,dose pack See Rx Instructions .Route .COMPLEX 6 Days Qty: 21 0RF Rx Instructions: taper pack; guaifenesin [Mucinex] 600 mg tablet extended release 12hr 600 mg PO BID PRN (Reason: cough) Qty: 20 0RF No Action norgestimate-ethinyl estradiol [Sprintec (28)] 0.25-35 mg-mcg tablet 1 tab PO DAILY Referrals Follow up/Referrals: Kaushal Collins MD [Primary Care Provider] - See instructions Activity Restrictions/Add. Instructions Additional Instructions/Restrictions: * Start antibiotic today. Be sure to complete entire prescription even if feeling better * Monitor temp. Tylenol every 4 hours as needed and / or ibuprofen every 6 hours as needed ( As long as your primary care physician has told you that it ok to take both. For fever/aches/pains ER if no less than 101 despite Tylenol or Motrin * Humidifier/vaporizer or hot steamy shower * Mucinex during the day for your cough and cough suppressant only at night. Be sure to drink lots of water. Insurance may not cover a prescriptions for mucinex. Might be cheaper to get 400mg tablets and take 2 tablet in the morning, mid-day and evening with lots of water. *Start steroid today. Helps with inflammation therefore, cough and wheezing. Follow directions on the package. Reviewed side effects. Patient reports taking them before. Follow up IMMEDIATELY for new or worsening of symptoms OR no noticeable improvement over the next 48-72 hours. 911 immediately for any life threatening symptoms such as chest pain or difficulty breathing Clinical Impressions Clinical Impression: Bronchitis Instructions Patient Instructions: Acute Bronchitis, Azithromycin Discharge ED Provider: Katrin Duncan [facility] [place] HPI General Stated complaint: pain in her back,SOA,cough Mode of Arrival: Ambulatory Source of Information: Patient Limitations: No Limitations Time Seen by Provider: 09/20/23 19:14 Description of Symptoms (Recalled from Triage Doc. by RN): Pt's symptoms are sore throat, dry cough, and aching in mid back from coughing. HEENT Symptoms (Recalled from RN notes): Yes Resp Symptoms (Recalled from RN notes): No Skin Symptoms (Recalled from RN notes): No MS Symptoms (Recalled from RN notes): No Functional Status (Recalled from RN notes): n/a History of Present Illness Provider Complaint: Patient states that she has been having scratchy throat, dry cough, and achy like feeling in her mid back States that feels like it did when she had bronchitis States that she isnt coughing anything up or anything but having sinus congestion and pressure too Denies exposure to flu or COVID and does not want to be tested for that Related Data Home Medications Medication Instructions Recorded Confirmed norgestimate 0.25 mg-ethinyl 1 tab PO DAILY control 11/19/22 09/20/23 estradiol 35 mcg tablet (Sprintec (28)) Previous Rx's Medication Instructions Recorded azithromycin 250 mg tablet See Rx Instructions PO .COMPLEX 5 09/20/23 (Zithromax Z-Dusty) days #6 tabs guaifenesin 600 mg tablet, 600 mg PO BID PRN cough #20 tabs 09/20/23 extended release 12 hr (Mucinex) methylprednisolone 4 mg tablets in See Rx Instructions .Route 09/20/23 a dose pack (Medrol (Dusty)) .COMPLEX 6 days #21 tabs Allergies Allergy/AdvReac Type Severity Reaction Status Date / Time No Known Allergies Allergy Verified 09/20/23 19:09 Worker's Comp Is this a Worker's Comp case?: No [facility] Disclaimer: The information contained in this section may have been updated after the patient was seen, as this information can be updated by other users. Social History Smoking Status: Current every day smoker tobacco type: cigarettes packs per day: 1 alcohol intake: former substance use type: marijuana current occupational status: employed Travel in the last 8 weeks: None household members: significant other housing: house ROS Obtained: Yes All systems reviewed & no additional complaints except as documented and Yes Systems reviewed as appropriate & no additional complaints except as documented Constitutional Constitutional: Reports system reviewed and no additional complaints, except as documented, Reports as per HPI, Denies body ache, Denies chills and Denies fever(s) Eyes Eyes: Reports system reviewed and no additional complaints, except as documented and Reports as per HPI ENT Ears, Nose, Mouth, and Throat: Reports system reviewed and no additional complaints, except as documented, Reports as per HPI, Reports nasal congestion, Reports sinus pressure and Reports sore throat (scratchy throat) Cardiovascular Cardiovascular: Reports system reviewed and no additional complaints, except as documented and Reports as per HPI Respiratory Respiratory: Reports system reviewed and no additional complaints, except as documented, Reports as per HPI, Denies shortness of breath, Reports chest congestion, Reports cough and Reports pain with cough Gastrointestinal Gastrointestingal: Reports system reviewed and no additional complaints, except as documented and as per HPI Physical Exam General General appearance: alert and in no apparent distress ENT ENT exam: Present mucous membranes moist Expanded ENT Exam Nose exam: Present sinus tenderness Throat exam: Present other (Mild pharngeal erythema noted with PND) Respiratory Respiratory exam: Present normal lung sounds bilaterally; Absent respiratory distress or wheezes Cardiovascular Cardiovascular exam: Present regular rate, normal rhythm and normal heart sounds Abdominal Exam Abdominal exam: Present soft and normal bowel sounds; Absent distention or tenderness Neurological Exam Neurological exam: Present alert, oriented X3 and normal gait Medical Decision Making Angus Inquiry Pt receiving controlled substance: No Angus was queried for this patient: No Vital Signs: 09/20/23 18:45 Temperature 98.4 F Temperature Source Oral Pulse Rate [Right Radial] 91 H Respiratory Rate 18 Blood Pressure [Right Arm] 133/65 Blood Pressure Mean [Right Arm] 87 Blood Pressure Source [Right Arm] Automatic Cuff Blood Pressure Position [Right Arm] Sitting 02 Sat by Pulse Oximetry 99 Oxygen Delivery Method Room Air Lab Data Lab results reviewed: Yes I reviewed the patient's lab results. Lab Results 09/20/23 18:37: Strep Scn Rapid Clinic Negative Orders (Tests/Meds): ORDERS Category Date Time Status Strep Screen Confirmation Stat Micro 09/20/23 18:37 Received Medical Decision Narrative: Discussed CXR, COVID and flu testing and patient declined
[2023-09-20 19:39] VITALS: BP 134/95; PULSE 87; RESP 19; TEMP 36.8; O2SAT 97
== END 2023-09-20 19:39 | disposition home or self-care (01) ==
PROVIDERS: Emergency Provider Nurse Practitioner; PCP Family Medicine
DX: J20.9 Acute bronchitis, unspecified (principal); R07.0 Pain in throat; R05.9 Cough, unspecified; R09.81 Nasal congestion; F17.210 Nicotine dependence, cigarettes, uncomplicated
CPT/HCPCS: 87880; 99212; 99214; G0463

== ENCOUNTER 2024-03-08 14:51 | Outpatient (CLI) | payer OTHER, SELFPAY | END 2024-03-08 23:59 | disposition home or self-care (01) | LOC: LAB.DROPOF 03-09 14:52 | PROVIDERS: PCP Student in an Organized Health Care Education/Training Program; Visit Provider Student in an Organized Health Care Education/Training Program | DX: J02.9 Acute pharyngitis, unspecified (principal) | CPT/HCPCS: 87070 ==

== ENCOUNTER 2024-06-17 13:38 | Emergency (ER) | payer OTHER, SELFPAY ==
[2024-06-17 14:35] VITALS: BP 124/81; PULSE 74; RESP 18; TEMP 36.8; O2SAT 100; BMI 24.7
--- NOTE | 2024-06-17 14:46 | ED_ITS ---
Discharge Plan Disposition Patient Disposition: Home, Self-Care Condition: Good Prescriptions Prescriptions: New phenazopyridine [Pyridium] 200 mg tablet 200 mg PO Q8H 2 Days Qty: 6 0RF nitrofurantoin monohyd/m-cryst [Macrobid] 100 mg Capsule 100 mg PO BID Qty: 10 0RF Rx Instructions: must administer with a meal/food Referrals Follow up/Referrals: Kaushal Collins MD [Primary Care Provider] - See instructions Activity Restrictions/Add. Instructions Additional Instructions/Restrictions: Drink plenty of fluids. Take tylenol or ibuprofen for pain or fever. Take the medications as directed. Follow up with your regular doctor. GO TO THE ER FOR ANY WORSENING SYMPTOMS The pyridium will make your urine turn orange, this is an expected side effect. It will stain your clothes if it comes into contact with them. We will culture the urine. That will tell what bacteria is causing your infection and which antibiotics will treat it best.This test takes 3 days to complete. Clinical Impressions Clinical Impression: UTI (urinary tract infection) Stand Alone Forms Stand Alone Forms: Work/School Release Instructions Patient Instructions: Urinary Tract Infection, Urine Culture, DI for Urinary Tract Infection (UTI), Phenazopyridine Print Language Print Language: Luxembourgish Discharge ED Provider: Nate Stafford [facility] General Stated complaint: burning when urinating Time Seen by Provider: 06/17/24 14:45 Related Data Previous Rx's ?Medication ?Instructions ?Recorded nitrofurantoin 100 mg PO BID #10 caps 06/17/24 monohydrate/macrocrystals 100 mg capsule (Macrobid) phenazopyridine 200 mg tablet 200 mg PO Q8H 2 days #6 tabs 06/17/24 (Pyridium) Allergies Allergy/AdvReac Type Severity Reaction Status Date / Time No Known Allergies Allergy Verified 03/08/24 13:11 [facility] Disclaimer: The information contained in this section may have been updated after the patient was seen, as this information can be updated by other users. Medical History (Updated 06/17/24 @ 15:26 by Nate Stafford APRN) UTI (urinary tract infection) Kidney stones Depression Anxiety Lumbar back pain Back pain Adjustment disorder with mixed disturbance of emotions and conduct Marijuana use, continuous Surgical History No pertinent past surgical history Family History (Updated 03/08/24 @ 13:13 by Stephanie Rayo MA) Family/Other No significant family history Social History (Updated 03/08/24 @ 13:14 by Stephanie Rayo MA) Smoking Status: Current every day smoker tobacco type: cigarettes packs per day: 1 alcohol intake: former substance use type: marijuana (daily. ) current occupational status: employed Travel in the last 8 weeks: None household members: significant other housing: house marital status: single number of children: 2 service: No intermediate: No ROS Obtained: Yes All systems reviewed & no additional complaints except as documented Constitutional Constitutional: Reports system reviewed and no additional complaints, except as documented, Denies chills and Denies fever(s) Eyes Eyes: Denies eye discharge ENT Ears, Nose, Mouth, and Throat: Denies dysphagia, Denies sore throat and Denies throat swelling Cardiovascular Cardiovascular: Denies chest pain and Denies dyspnea Respiratory Respiratory: Denies chest congestion, Denies cough and Denies dyspnea Gastrointestinal Gastrointestingal: Denies abdominal pain, constipation, diarrhea, dysphagia, nausea or vomiting Genitourinary Female Genitourinary: Reports as per HPI, Reports dysuria, Reports sexual dysfunction, Reports urinary frequency, Denies urinary incontinence and Reports urinary hesitancy Musculoskeletal Musculoskeletal: Denies arthralgias and Reports back pain Integumentary/Breasts Skin/Breast: Denies rash Neurologic Neurologic: Denies paresthesias Allergic/Immunologic Allergic/Immunologic: Denies throat swelling Physical Exam General General appearance: alert and in no apparent distress Head Head exam: atraumatic and normocephalic Eye Eye exam: Present normal appearance, PERRL and EOMI ENT ENT exam: Present normal exam, mucous membranes moist, TM's normal bilaterally and normal external ear exam Neck Neck exam: Present normal inspection, full ROM and trachea midline; Absent tenderness, meningismus or lymphadenopathy Chest Chest inspection: Present normal inspection and symmetric chest wall rise; Absent tenderness Respiratory Respiratory exam: Present normal lung sounds bilaterally; Absent respiratory distress, wheezes or stridor Cardiovascular Cardiovascular exam: Present regular rate, normal rhythm and normal heart sounds Abdominal Exam Abdominal exam: Present soft and normal bowel sounds; Absent distention, tenderness, guarding, rebound, rigidity, incision, psoas sign, obturator sign, heel tap sign, Chan's sign, Rovsing's sign or tenderness at McBurney's Point Extremities Exam Extremities exam: Present normal inspection, full ROM and normal capillary refill; Absent tenderness, edema, joint swelling, calf tenderness or cyanosis Back Exam Back exam: Present normal inspection and full ROM; Absent tenderness, CVA tenderness (R) or CVA tenderness (L) Neurological Exam Neurological exam: Present alert, oriented X3 and normal gait Psychiatric Psychiatric exam: Present normal affect and normal mood Skin Skin exam: Present warm, dry, intact and normal color Lymphatic Lymphatic Findings: no adenopathy Medical Decision Making Medical Records Medical records reviewed: No I reviewed the patient's medical records. Screening: Per USPSTF and CDC recommendations, given the prevalence of disease in our region, it is our hospital?s policy to screen for HIV and viral Hepatitis for all patients aged 18 and over and those with ongoing risk factors. Angus Inquiry Pt receiving controlled substance: No Lab Data Lab results reviewed: Yes I reviewed the patient's lab results. Orders (Tests/Meds): ORDERS Category Date Time Status Urine Culture Stat Micro 06/17/24 14:41 Ordered
[2024-06-17 14:48] LABS: Apearance,Urine Cloudy (Clear); Color,Urine Dark Yellow (Yellow); Protein,Urine 1+ (Negative)
[2024-06-17 14:49] LABS: Bilirubin,Urine Negative (Negative); Blood, Urine Trace (Negative); Glucose,Urine (UA) Negative (Negative); Ketones,Urine Negative (Negative); UTC Leukocyte Esterase,Urine 3+ (Negative); UTC Nitrate,Urine Positive (Negative); Urobilinogen,Urine 0.2 EU/dl (0.2)
[2024-06-17 15:12] LABS: Urine Pregnancy, HCG Qual. Negative (Negative)
[2024-06-17 15:25] VITALS: BP 124/81; PULSE 74; RESP 18; TEMP 36.8; O2SAT 100
== END 2024-06-17 15:28 | disposition home or self-care (01) ==
PROVIDERS: Emergency Provider Nurse Practitioner Family; PCP Family Medicine
DX: N39.0 Urinary tract infection, site not specified (principal)
CPT/HCPCS: 81003; 81025; 87086; 87088; 87186; 99213; G0381

== ENCOUNTER 2024-07-12 11:35 | Outpatient (CLI) | payer OTHER, SELFPAY ==
[2024-07-12 18:24] LABS: Adenovirus,PCR Not Detected (NotDetected); Bordetella Pertussis Not Detected (NotDetected); Chlamydophila Pneumoniae, PCR Not Detected (NotDetected); Coronavirus 19, PCR Not Detected (NotDetected); Coronavirus 229E Not Detected (NotDetected); Coronavirus NL63 Not Detected (NotDetected); Coronavirus OC43 Not Detected (NotDetected); Coronovirus HKU1,PCR Not Detected (NotDetected); Human Metapneumovirus Not Detected (NotDetected); Influenza A, PCR Not Detected (NotDetected); Influenza AH1, 2009 Not Detected (NotDetected); Influenza AH1, PCR Not Detected (NotDetected); Influenza AH3,PCR Not Detected (NotDetected); Influenza B, PCR Not Detected (NotDetected); Mycoplasma Pneumoniae, PCR Not Detected (NotDetected); Parainfluenza 1, PCR Not Detected (NotDetected); Parainfluenza 2, PCR Not Detected (NotDetected); Parainfluenza 3, PCR Not Detected (NotDetected); Parainfluenza 4, PCR Not Detected (NotDetected); Respiratory Syncytial Virus Not Detected (NotDetected)
[2024-07-13 00:49] LABS: Rhinovirus/Enterovirus Detected (NotDetected)
== END 2024-07-12 23:59 | disposition home or self-care (01) ==
LOC: LAB.DROPOF 07-13 10:56
PROVIDERS: PCP Student in an Organized Health Care Education/Training Program; Visit Provider Student in an Organized Health Care Education/Training Program
DX: R05.9 Cough, unspecified (principal)
CPT/HCPCS: 87633

== ENCOUNTER 2024-12-05 15:27 | Outpatient (CLI) | payer OTHER, SELFPAY ==
[2024-12-05 15:30] LABS: Microscopic, Urine URINE MICROSCOPIC (MICROSCOPIC)
[2024-12-05 16:02] LABS: Bilirubin,Urine Negative (Negative); Blood, Urine TRACE-L (Negative); Color,Urine YELLOW (Yellow); Glucose,Urine (UA) Negative (Negative); Ketones,Urine Negative (Negative); Leukocyte Esterase,Urine 2+ (Negative); Nitrate,Urine POSITIVE (Negative); Protein,Urine Negative (Negative); Specific Gravity, Urine 1.015 (1.005-1.030); Urobilinogen,Urine 0.2 EU/dl (0.2)
[2024-12-05 16:05] LABS: Appearance,Urine Slightly Cloudy (Clear)
[2024-12-05 16:21] LABS: RBC,Urine Occasional #/hpf (0-3); WBC,Urine 20-50 #/hpf (0-3)
[2024-12-05 16:22] LABS: Bacteria,Urine 3+ /lpf
== END 2024-12-05 23:59 | disposition home or self-care (01) ==
LOC: LAB.DROPOF 15:28
PROVIDERS: PCP Student in an Organized Health Care Education/Training Program; Visit Provider Student in an Organized Health Care Education/Training Program
DX: R30.0 Dysuria (principal)
CPT/HCPCS: 81001; 87086; 87088

== ENCOUNTER 2025-04-15 08:13 | Outpatient (CLI) | payer OTHER, SELFPAY ==
--- OUTSIDE RECORDS SUMMARY | 2025-03-27 11:15 | XMS_ITS | Encounter Summary ---
Author Organization [facility] Address [address] [id number] Care Team Providers Care Automation Specialist Name Role Phone Oscar Allen MD Primary Care Provider [phone] Reason for Visit * Reason Comments Follow-up Pt denies bleeding, pain+ nipple rawness, Encounter Details Date Type Department Care Team (Late st Contact Info) Description 03/27/2025 11:15 AM EDT Visit Obstetrics & Gynecology [address] [place] [address] Librado Soto MD [address] [place] [address] Routine follow-up (Primary Dx); ASCUS [...] Recorded Patient Health Questionnaire-9 Score 0 02/10/2025 [place] Depression Scale Answer Date Recorded [place] Depression Scale Total 8 03/27/2025 The thought [...] 11:53 AM EDT Brittany Ames RN * If you checked off any problems on this questionnaire so far, Question Answer Date of Assessment Author How difficult have these problems made it for you to do your work, take care of things at home, or get along with other people? Not difficult at all 03/27/2025 11:53 AM EDT Brittany Ames RN documented as of this encounter Miscellaneous [...] EST Office Visit Obstetrics & Gynecology [address] [place] [address] Librado Soto MD [address] [place] [address] documented as of this encounter [...] Time PHQ-9 Depression Total Score: 0 02/11/20 25 9:17 AM EDT A fall risk assessment has been complete d for the patient 03/27/2025 11:53 AM EDT A Body Mass Index follow-up plan has been documented for the patient 03/27/2025 12:01 PM EDT documented as of this encounter Care Teams Automation Specialist Relationship Specialty Start Date End Date Oscar Allen MD [address] [place] [address] PCP - General 12/14/20 documented as of this encounter
[2025-04-16 10:07] LABS: Coronavirus 19, PCR Not Detected (NotDetected); Influenza A, PCR Not Detected (NotDetected); Influenza B, PCR Not Detected (NotDetected)
--- OUTSIDE RECORDS SUMMARY | 2025-04-18 08:25 | XMS_ITS | Encounter Summary ---
Author Organization [facility] Address [address] [id number] Care Team Providers Care Trademark Affixer Name Role Phone Oscar Allen MD Primary Care Provider Reason for Visit * Reason Comments Med Refill Encounter Details Date Type Department Care Team (Late st Contact Info) Description 11/25/2023 Refill Obstetrics & Gynecology [address] [place] [address] Milvia Jones, RN [address] [place] [address] Social History Tobacco Use Types Packs/Day Years Used Date Smoking Tobacco: Every Day Smokeless Tobacco: Current Comments:Smokes 1 pack of ci garettes per day Alcohol Use Standard Drinks/Week Comments Never 0 (1 standard drink = 0.6 oz pur e alcohol) PHQ-2 Answer Date Recorded Patient Health Questionnaire-2 Score 0 09/26/2022 [place] Depression Scale Answer Date Recorded [place] Depression Scale Total 0 05/16/2022 The thought of harming myself has occurred to me . Never 05/16/2022 PHQ-2A Answer Date Recorded Patient Health Questionnaire-2 Score 0 09/26/2022 Comments Unknown Sex and Gender Information Value Date Recorded Sex Assigned at Not on file Legal Sex Female 7:17 PM EDT Gender Identity Not on file Sexual Orientation Not on file documented as of this encounter Plan of Treatment Upcoming Encounters Date Type Department Care Team (Late st Contact Info) Description 06/28/2025 9:00 AM EST Office Visit Obstetrics & Gynecology [address] [place] [address] Librado Soto MD [address] [place] [address] documented as of this encounter Visit Diagnoses Not on filedocumented in this encounter Additional Health Concerns Assessment Noted Time A fall risk assessment has been complete d for the patient 11/18/2022 9:22 AM EDT documented as of this encounter Care Teams Trademark Affixer Relationship Specialty Start Date End Date Oscar Allen MD [address] [place] [address] PCP - General 12/14/20 documented as of this encounter
--- OUTSIDE RECORDS SUMMARY | 2025-04-18 08:25 | XMS_ITS | Encounter Summary ---
Author Organization [facility] Address [address] [place] [address] Care Team Providers Care Pastry Sous Chef Name Role Phone Oscar Allen MD Primary Care Provider Encounter Details Date Type Department Care Team (Latest Contact Info) Description 03/27/2025 Travel Social History Tobacco Use Types Packs/Day Years Used Date Smoking Tobacco: Every Day Cigarettes 1 10 Smokeless Tobacco: Current Comments:Smokes 1 pack of ci garettes per day Alcohol Use Standard Drinks/Week Comments Never 0 (1 standard drink = 0.6 oz pur e alcohol) PHQ-2 Answer Date Recorded Patient Health Questionnaire-2 Score 0 03/27/2025 PHQ-9 Answer Date Recorded Patient Health Questionnaire-9 Score 0 02/10/2025 [place] Depression Scale Answer Date Recorded [place] Depression Scale Total 8 03/27/2025 The thought of harming myself has occurred to me . Never 03/27/2025 PHQ-2A Answer Date Recorded Patient Health Questionnaire-2 Score 0 09/26/2022 Comments No Sex and Gender Information Value Date Recorded Sex Assigned at Not on file Legal Sex Female 7:17 PM EDT Gender Identity Not on file Sexual Orientation Not on file documented as of this encounter Functional Status * Over the past 2 weeks, how often have you been bothered by any of the following problems? Question Answer Date of Assessment Author Little interest or pleasure in doing things Not at all 03/27/2025 11:53 AM EDT Brittany Ames, RN Feeling down, depressed, or hopeless Not at all 03/27/2025 11:53 AM EDT Brittany Ames, RN Patient Health Questionnaire -2 Score 0 03/27/2025 11:53 AM EDT Brittany Ames, RN * If you checked off any problems on this questionnaire so far, Question Answer Date of Assessment Author How difficult have these problems made it for you to do your work, take care of things at home, or get along with other people? Not difficult at all 03/27/2025 11:53 AM EDT Brittany Ames , RN documented as of this encounter Plan of Treatment Upcoming Encounters Date Type Department Care Team (Late st Contact Info) Description 06/28/2025 9:00 AM EST Office Visit Obstetrics & Gynecology [address] [place] [address] Librado Soto MD [address] [place] [address] documented as of this encounter Goals Goal Patient Goal Type Associated Problems Recent Progress Patient-Stated? Author Delayed Care Plan CPM S24 PP LABOR (OBSTETRICS) No Open Scheduling, Background documented as of this encounter Visit Diagnoses Not on filedocumented in this encounter Additional Health Concerns Active [...] documented as of this encounter Care Teams Pastry Sous Chef Relationship Specialty Start Date End Date Oscar Allen MD [address] [place] [place] [address] PCP - General 12/14/20 documented as of this encounter
--- OUTSIDE RECORDS SUMMARY | 2025-04-18 08:25 | XMS_ITS | Encounter Summary ---
Author Organization [facility] Address [address] [id number] Care Team Providers Care Medical Historian Name Role Phone Oscar Allen MD Primary Care Provider [phone] Encounter Details Date Type Department Care Team (Late st Contact Info) Description 02/17/2025 Telephone Obstetrics & Gynecology [address] [place] [address] Librado Soto MD [address] [place] [address] Social History Tobacco Use Types Packs/Day Years Used Date Smoking Tobacco: Every Day Cigarettes 1 10 Smokeless Tobacco: Current Comments:Smokes 1 pack of ci garettes per day Alcohol Use Standard Drinks/Week Comments Never 0 (1 standard drink = 0.6 oz pur e alcohol) PHQ-2 Answer Date Recorded Patient Health Questionnaire-2 Score 0 02/10/2025 [place] Depression Scale Answer Date Recorded [place] Depression Scale Total 0 05/16/2022 The thought of harming myself has occurred to me . Never 05/16/2022 PHQ-9 Answer Date Recorded Patient Health Questionnaire-9 Score 0 02/10/2025 PHQ-2A Answer Date Recorded Patient Health Questionnaire-2 Score 0 09/26/2022 Comments Yes Sex and Gender Information Value Date Recorded Sex Assigned at Not on file Legal Sex Female 7:17 PM EDT Gender Identity Not on file Sexual Orientation Not on file documented as of this encounter Miscellaneous Notes * Telephone Encounter - Bertha Norris - 02/17/2025 1:43 PM EDT Clinical Concern/Question Reason for Call: Pt thinks she has an infection and needs a call back Best contact number: [phone] (mobile) Optimal time of day to reach caller: ANYTIME Additional comments/information from caller: None Note: Please do not reply to this message. Follow-up communication and further actions as a result of this message need to be communicated with the patient directly, if the patient is not active onMyChart. If the patient is active on MyChart, they will receive notification of the communication/outcome via MyChart. documented in this encounter Plan of Treatment Upcoming Encounters Date Type Department Care Team (Late st Contact Info) Description 06/28/2025 9:00 AM EST Office Visit Obstetrics & Gynecology [address] [place] [address] Librado Soto MD [address] [place] [address] documented as of this encounter [...] has been complete d for the patient 02/10/2025 9:17 AM EDT A Body Mass Index follow-up plan has been documented for the patient 02/10/2025 9:45 AM EDT documented as of this encounter Care Teams Medical Historian Relationship Specialty Start Date End Date Oscar Allen MD [address] [place] [address] PCP - General 12/14/20 documented as of this encounter
--- OUTSIDE RECORDS SUMMARY | 2025-04-18 08:25 | XMS_ITS | Encounter Summary ---
Author Organization [facility] Address [address] [id number] Care Team Providers Care Tape Rules Printing Machine Operator Name Role Phone Oscar Allen MD Primary Care Provider [phone] Encounter Details Date Type Department Care Team (Late st Contact Info) Description 02/17/2025 Telephone Obstetrics & Gynecology [address] [place] [address] Librado Soto MD [address] [place] [address] Social History Tobacco Use Types Packs/Day Years Used Date Smoking Tobacco: Every Day Cigarettes 1 10 Smokeless Tobacco: Current Comments:Smokes 1 pack of ci garettes per day Alcohol Use Standard Drinks/Week Comments Never 0 (1 standard drink = 0.6 oz pur e alcohol) PHQ-2 Answer Date Recorded Patient Health Questionnaire-2 Score 0 02/10/2025 [place] Depression Scale Answer Date Recorded [place] Depression Scale Total 0 05/16/2022 The thought [...] encounter Miscellaneous Notes * Telephone Encounter - Suni Paz - 02/17/2025 2:[address] Soto pt advised to do plenty of walking, drink plenty of water, and if temp get above 100.4 present to Er pt vu * Telephone Encounter - Ada Leyva - 02/17/2025 12:02 PM EDT Clinical Concern/Question Reason for Call: Patient is 4 days PP and has has swollen legs and feet with a slight fever and a odor and would like to speak with someone Best contact number: [phone] (mobile) Optimal time of day to reach caller: ANYTIME Additional comments/information from caller: Not Applicable Note: Please do not reply to this message. Follow-up communication and further actions as a result of this message need to be communicated with the patient directly, if the patient is not active onMyChart. If the patient is active on MyChart, they will receive notification of the communication/outcome via [facility]. documented in this encounter Plan of Treatment Upcoming Encounters Date Type Department Care Team (Late st Contact Info) Description 06/28/2025 9:00 AM EST Office Visit Obstetrics & Gynecology [address] [place] [address] Librado Soto MD [address] [place] [address] documented as of this encounter Goals Goal [...] documented as of this encounter Care Teams Tape Rules Printing Machine Operator Relationship Specialty Start Date End Date Oscar Allen MD [address] [place] [address] PCP - General 12/14/20 documented as of this encounter
--- OUTSIDE RECORDS SUMMARY | 2025-04-18 08:26 | XMS_ITS | Clinical Summary ---
Author Organization [facility] Address [address] [place] [address] Care Team Providers Care Banking And Finance Instructor Name Role Phone Oscar Allen MD Primary Care Provider [phone] Allergies No known active allergies Medications Vit-Fe Fumarate-FA ( Vitamins) 28-0.8 MG tabletIndicatio ns:Unsure of LMP (last menstrual period) as reason for ultrasound scan, test positive Take 1 tablet by mouth 1 (one) time each day. 30 tablet 11 4 07/25/20 25 Active Additional Information Patient not taking.Reported on 03/27/2025 famotidine (Pepcid) 20 MG tablet Take 1 tablet by mouth 2 times a day. 60 tablet 11 5 12/15/19 26 Active Additional Information Patient not taking.Reported on 03/27/2025 norethindrone (Micronor) 0.35 MG tablet Take 1 tablet by mouth daily. 28 tablet 11 5 Active ondansetron (Zofran) 8 MG tabletIndicatio ns:Nausea and vomiting, unspecified vomiting type Take 1 tablet by mouth 2 times a day as needed for nausea. 60 tablet 5 03/19/20 25 Active Problems Problem Noted Date Diagnosed Date Smoker 03/19/2022 Encounter for supervision of other normal , third trimester 03/13/2022 Abnormal uterine and vaginal bleeding, unspecifi ed 04/11/2021 Assessment & Plan (04/11/2021 10:39 AM EDT): - 1 episode of 3 quarter sized clots. Discussed that one time could be normal. Reassurance provided. Counseled to look for pattern to see if this becomes regular. Return for AUB workup at that time if needed. Encounter for preconception consultation 021 Assessment & Plan (04/11/2021 10:40 AM EDT): - pap 05/2020 normal - recommended to start taking PNV - has 1 child with a different partner, conceived easily. Partner does not have children. - discussed timed intercourse and to return if not in 12 months if actively trying Irregular menstrual cycle 05/07/2020 Anxiety and depression 01/31/2019 Encounters Date Type Department Care Team Description 03/27/2025 11:15 AM EDT Visit Obstetrics & Gynecology [address] [place] [address] Librado Soto MD Routine follow-up (Primary Dx); ASCUS with positive high risk HPV cervical; Family planning 03/27/2025 Travel 02/17/2025 Telephone Obstetrics & Gynecology [address] [place] [address] Librado Soto MD 02/17/2025 Telephone Obstetrics & Gynecology [address] [place] [address] Librado Soto MD 02/14/2025 Travel 02/12/2025 Orders Only External Location [address] [place] [address] Librado Soto MD 02/10/2025 9:00 AM EDT Routine Obstetrics & Gynecology [address] [place] [address] Librado Soto MD 36 weeks gestation of (Primary Dx); Decreased movements in third trimester, single or unspecified fetus 02/10/2025 Travel 02/02/2025 3:45 PM EDT Routine Obstetrics & Gynecology [address] [place] [address] Librado Soto MD 35 weeks gestation of (Primary Dx) 02/02/2025 Travel 01/18/2025 10:40 AM EDT - 01/18/2025 11:59 PM EDT Hospital Encounter [facility] Ul[facility] [address] [place] [address] Significant discrepancy between uterine size and clinical dates, antepartum, third trimester Discharge Disposition: Home or Self Care 01/18/2025 10:30 AM EDT Routine Obstetrics & Gynecology [address] [place] [address] Librado Soto MD 33 weeks gestation of (Primary Dx) 01/18/2025 Travel 01/17/2025 Travel from Last 3 Months Immunizations Immunization Administration Dates Next Due DTaP, Unspecified 06/21/2003, 9,1997,1997 HiB, unspecified 1997,1997 Hib / Hep B 11/12/1998 IPV 06/21/2003,1997 Influenza, injectable, quadrivalent 06/08/2019,1 08/08/2018 Influenza, injectable, quadr ivalent, preservative free 04/17/2022 MMR 11/12/1998 OPV 11/12/1998 Tdap 12/14/2024,,07/06/2019,2018,03/15/2008 Family History Medical History Relation Name Comments COPD Mother Relation Name Status Comments Mother Social History Tobacco Use Types Packs/Day Years Used Date Smoking Tobacco: Every Day Cigarettes 1 10 Smokeless Tobacco: Current Tobacco Cessation:Ready to Q uit: Not Asked; Counseling Given: Not Answered Comments:Smokes 1 pack of cigarettes per day Alcohol Use Standard Drinks/Week Comments Never 0 (1 standard drink = 0.6 oz pur e alcohol) PHQ-2 Answer Date Recorded Patient Health Questionnaire-2 Score 0 03/27/2025 PHQ-9 Answer Date Recorded Patient Health Questionnaire-9 Score 0 02/10/2025 [place] Depression Scale Answer Date Recorded [place] Depression Scale Total 8 03/27/2025 The thought of harming myself has occurred to me . Never 03/27/2025 PHQ-2A Answer Date Recorded Patient Health Questionnaire-2 Score 0 09/26/2022 Comments No Sex and Gender Information Value Date Recorded Sex Assigned at Not on file Legal Sex Female 7:17 PM EDT Gender Identity Not on file Sexual Orientation Not on file Last Filed Vital Signs Vital Sign Reading Time Taken Comments Blood Pressure 125/79 03/27/2025 11:52 AM EDT Pulse 81 03/27/2025 11:52 AM EDT Temperature 36.7 C (98.1 F) 02/10/2025 9:17 AM EDT Respiratory Rate 20 12/28/2024 11:3 3 AM EDT Oxygen Saturation 99% 03/27/2025 11: 52 AM EDT Inhaled Oxygen Concentration - - Weight 58.5 kg (128 lb 15.5 oz) 025 11:52 AM EDT Height 165.1 cm (5' 5 ) 02/02/2025 3:53 PM EDT Body Mass Index 21.46 02/02/2025 3:53 PM EDT Plan of Treatment Upcoming Encounters Date Type Department Care Team (Late st Contact Info) Description 06/28/2025 9:00 AM EST Office Visit Obstetrics & Gynecology [address] [place] [address] Librado Soto MD [address] [place] [address] Health Maintenance Due Date Last Done Comments [facility]-Infant/Child/Adol SDOH Screenings 1997 [facility]-Hepatitis B Vaccines (2 of 3 - 3-dose series) 12/10/1998 11/12/1998 [facility]-Varicella Vaccines (1 of 2 - 13+ 2-dose series) 2010 [facility]- SDOH Screenings 2015 [facility]-Adult SDOH Screenings 2015 [facility]-Pneumococcal Vaccine: Pediatrics (0 to 5 Years) and At-Risk Patients (6 to 49 Years) (1 of 2 - PCV) 2016 HPV Vaccines (1 - 3-dose SCDM series) 2024 [id number] Vaccine ( - 2023- season) 2025 [facility]-Influenza Vaccine (#1) 04/03/202504/17, 06/08/2019, 06/08/2019 [facility]-Depression Screening 03/27/2026 025, 03/27/2025, 02/10/2025 [facility]-Pap Smear 11/30/2026 12/01/2023, 09/05/2022 [facility]-DTaP,Tdap,and Td Vaccines (10 - Td or Tdap) 12/14/2034 12/14/2024, 02/05/2022, 07/06/2019, Additional history exists [facility]-Zoster Vaccines (1 of 2) 2047 [facility]-HIB Vaccines Completed 11/12/1998, , 1997 [facility]-IPV Vaccines Completed 06/21/2003, 07/1999, 1997 [facility]-HIV Screening Completed 07/25/2024, , 12/31/2018 [facility]-Hepatitis C Screening Completed 2023, 09/13/2021, 12/31/2018 [facility]-Hepatitis A Vaccines Aged Out No longer eligible based on patient's age to complete this topic [facility]-Rotavirus Vaccines Aged Out No lo nger eligible based on patient's age to complete this topic Goals Goal Patient Goal Type Associated Problems Recent Progress Patient-Stated? Author Delayed Care Plan CPM S24 PP LABOR (OBSTETRICS) No Open Scheduling, Background Procedures Procedure Name Priority Date/Time Associated Diagnosis Comments TYPE AND SCREEN Routine 02/12/2025 7:10 AM EDT CBC W/O DIFFERENTIAL Routine 02/12/2025 7:00 AM EDT GROUP B STREPTOCOCCUS BY PCR Routine 02/10/2025 9:35 AM EDT 36 weeks gestation of OB US FOLLOW UP TRANSABDOMINAL APPROACH Routine 01/18/2025 11:03 AM EDT Significant discrepancy between uterine size and clinical dates, antepartum, third trimester HEPATITIS C ANTIBODY W/REFLEX TO HCV QUANT PCR Routine 07/25/2024 4:18 PM EST Unsure of LMP (last menstrual period) as reason for ultrasound scan test positive HIV 1/2 ANTIBODY/ANTIGEN SCREEN WITH REFLEX TO HIV I/II DIFFERENTIATION Routine 07/25/2024 4:18 PM EST Unsure of LMP (last menstrual period) as reason for ultrasound scan test positive PAP TEST - CYTOLOGY Routine 12/01/2023 1 0:33 AM EDT Encounter for gynecological examination without abnormal finding from Last 3 Months or Most Recently Relevant to Health Maintenance Results * Type and Screen (02/12/2025 7:10 AM EDT) External History Check Completed [facility] Comment:HX APOS External ABO/Rh A POSITIVE [facility] External Antibody Screen NEGATIVE [facility] External Status Information Completed [facility] 02/12/2025 7:10 AM EDT 02/12/2025 6:48 AM EDT Librado Soto MD LAB BLOOD BANK TEST ORDERABLES Final Result [facility] * (ABNORMAL) CBC W/O Differential (02/12/2025 7:00 AM EDT) External WBC 14.4(H) 4.0 - 10.5 K/ul [facility] External Red Blood Cell (RBC) 4.1(L) 4.2 - 6.4 M/mm3 [facility] External Hemoglobin 11.2(L) 12.5 - 16.0 gm/dl [facility] External Hematocrit 34.4(L) 37.0 - 47.0 % [facility] External MCV 84.3 78 - 100 fl [facility] External MCH 27.5 27 - 31 pg [facility] External MCHC 32.6 32 - 36 g/dl [facility] External RDW 13.2 11.5 - 14.0 % [facility] External Platelets 218 150 - 450 K/ul [facility] External MPV 11.6(H) 6 - 9.5 [facility] External Manual Differential NO [facility] 02/12/2025 7:00 AM EDT 02/12/2025 7:18 AM EDT Result Moses Soto MD LAB BLOOD ORDERABLES Final Resu lt Performing Organization Address [facility] de Phone Number [facility] * Group B Streptococcus by PCR (02/10/2025 9:35 AM EDT) Group B Streptococcus PCR Result Not Detected Not Detected 02/13/2025 11:52 AM EDT [facility] Swab Rectovaginal / Unknown Non-blood Collection / Unknown 02/10/2025 9:35 AM EDT 02/10/2025 1:00 PM EDT Narrative [facility] - 02/13/2025 11:52 AM EDT This test is FDA approved for use with vaginal/rectal swab using the eSwabs. This test is used for clinical purposes. It should not be regarded as investigational or for research. This laboratory is certified under the Clinical Laboratory improvement Amendments of 1988 (CLIA-88 as qualified to perform high complexity clinical laboratory testing. Result Moses Soto MD LAB MICROBIOLOGY - GENERAL ORDE RABLES Final Result Performing Organization Address [facility] de Phone Number [facility] [address] [place] [address] * OB US Follow Up Transabdominal Approach (01/18/2025 11:03 AM EDT) Anatomical Region Laterality Modality Body Ultrasound 01/18/2025 10:4 2 AM EDT Impressions 01/18/2025 4:34 PM EDT The OB Ultrasound you requested has been resulted. Please navigate to the Imaging tab in [email or web address] for review. This message has been generated by the interface. Narrative Procedure Note Sheryl Muñoz MD - 01/18/2025 IMPRESSION: The OB Ultrasound you requested has been resulted. Please navigate to theImaging tab in [email or web address] for review. This message has been generated by [email or web address]. Result Moses Soto MD IMG OB US PROCEDURES Final Resu lt * HIV 1 & 2 Antibody/Antigen Screen (07/25/2024 4:18 PM EST) HIV 1 & 2 Antibody/Antigen Screen Non Reactive Non Reactive 07/25/2024 6:25 PM EST [facility] Comment:Screening for HIV 1 & 2 antibodies, and P24 antigen is NONREACTIVE. No confirmatory testing is required. Blood Venous blood specimen / Unknown Venipuncture / Unknown 07/25/2024 4:18 PM EST 07/25/2024 5:46 PM EST Result Moses Soto MD LAB BLOOD ORDERABLES Final Resu lt Performing Organization Address City/[facility]/ZIP Co de Phone Number [facility] [address] [place] [address] * Hepatitis C Antibody (07/25/2024 4:18 PM EST) Hepatitis C Antibody Negative Negative 07/25/2024 6:27 PM EST [facility] Blood Venous blood specimen / Unknown Venipuncture / Unknown 07/25/2024 4:18 PM EST 07/25/2024 5:46 PM EST Result Moses Soto MD LAB BLOOD ORDERABLES Final Resu lt [facility] [address] [place] [address] * (ABNORMAL) Pap Test (12/01/2023 10:33 AM EDT) Case Report Cytology Case: [id number] Authorizing Provider: Milvia Jones APRN, DNP Collected: 12/01/2023 1033 Ordering Location: Obstetrics & Gynecology Received: 12/02/2023 1002 First Screen: Lucius Ugalde Pathologist: Mehnaz Fuchs MD Specimen: ThinPrep Pap Test, Liquid-Based Cervical/Vagina l 12/17/2023 5:33 PM EDT [facility] Interpretation ATYPICAL SQUAMOUS CELLS OF UNDETERMINED SIGNIFICANCE (ASCUS)(A) 12/17/2023 5:33 PM EDT [facility] at 1733 EDT Specimen Adequacy Satisfactory for evaluation; endocervical/tr ansformation zone component present. Slide imaged by the ThinPrep Imaging system and selected 22 gomez reviewed then full manual screening. 12/17/2023 5:33 PM EDT [facility] Cervical cytology is a screening test primarily for squamous cancers and precursors and has associated false negative and positive results. New technologies such as liquid based sampling may decrease but will not eliminate all false negative results. Regular screening and follow-up of unexplained clinical signs and symptoms are recommended to minimize false negative results. Please see the ASCCP website (www.asccp.org) for followup recommendations . If HPV testing was requested, correlation with the results is suggested (please call Microbiology at [phone] for results). 12/17/2023 5:33 PM EDT [facility] Menstrual Status Cyclic 12/17/19 24 5:33 PM EDT [facility] Contraceptive History control pills 12/17/2023 5:33 PM EDT [facility] Screening Type Routine Screen 2023 5:33 PM EDT [facility] High Risk? No 12/17/2023 5:33 PM EDT [facility] HPV Testing Requested? Request HPV Testing Regardless of Pap Test Findings 12/17/2023 5:33 PM EDT [facility] Previous Cancer History No 12/17/2023 5:33 PM EDT [facility] Clinical Information Z01.419 - Encounter for gynecological examination without abnormal finding [ICD-10-CM] 12/17/2023 5:33 PM EDT [facility] Last Menstrual Period 11/17/2023 12/17/2023 5:33 PM EDT [facility] Swab Vaginal and cervical cytologic material / Unknown Non-blood Collection / Unknown 12/01/2023 10:33 AM EDT 12/02/2023 10:02 AM EDT us Milvia A Hare EDGE CUTTING MACHINE OPERATOR CYTOLOGY ORDERABLES Final Result [facility] [address] [place] [address] from Last 3 Months or Most Recently Relevant to Health Maintenance Additional Health Concerns Active Problems Noted Date Diagnosed Date CPM S24 PP LABOR (OBSTETRICS) 09/06/[address] [facility] MEDICAID Care Teams Banking And Finance Instructor Relationship Specialty Start Date End Date Oscar Allen MD [address] [facility] [place] [address] PCP - General 12/14/20
== END 2025-04-15 23:59 ==
LOC: LAB.DROPOF 04-18 08:13
PROVIDERS: Visit Provider Nurse Practitioner Family
DX: J06.9 Acute upper respiratory infection, unspecified (principal); R35.0 Frequency of micturition
CPT/HCPCS: 87086; 87631

== ENCOUNTER 2025-05-25 11:02 | Outpatient (CLI) | payer OTHER, SELFPAY ==
--- OUTSIDE RECORDS SUMMARY | 2025-03-27 11:15 | XMS_ITS | Encounter Summary ---
Author Organization [facility] Address [address] [id number] Care Team Providers Care Legal Referee Name Role Phone Oscar Allen MD Primary Care Provider [phone] Reason for Visit * Reason Comments Follow-up Pt denies bleeding, pain+ nipple rawness, Encounter Details Date Type Department Care Team (Late st Contact Info) Description 03/27/2025 11:15 AM EDT Visit Obstetrics & Gynecology [address] [place] [address] Librado Soto MD [address] [place] [address] Routine follow-up (Primary Dx); ASCUS with positive high risk HPV cervical; Family planning Social History Tobacco Use Types Packs/Day Years Used Date Smoking Tobacco: Every Day Cigarettes 1 10 Smokeless Tobacco: Current Comments:Smokes 1 pack of ci garettes per day Alcohol Use Standard Drinks/Week Comments Never 0 (1 standard drink = 0.6 oz pur e alcohol) PHQ-2 Answer Date Recorded Patient Health Questionnaire-2 Score 0 03/27/2025 PHQ-9 Answer Date Recorded Patient Health Questionnaire-9 Score 0 02/10/2025 [place] Depression Scale Answer Date Recorded [place] Depression Scale Total 8 03/27/2025 The thought of harming myself has occurred to me . Never 03/27/2025 PHQ-2A Answer Date Recorded Patient Health Questionnaire-2 Score 0 09/26/2022 Comments No Sex and Gender Information Value Date Recorded Sex Assigned at Not on file Legal Sex Female 7:17 PM EDT Gender Identity Not on file Sexual Orientation Not on file documented as of this encounter Last Filed Vital Signs Vital Sign Reading Time Taken Comments Blood Pressure 125/79 03/27/2025 11:52 AM EDT Pulse 81 03/27/2025 11:52 AM EDT Temperature - - Respiratory Rate - - Oxygen Saturation 99% 03/27/2025 11: 52 AM EDT Inhaled Oxygen Concentration - - Weight 58.5 kg (128 lb 15.5 oz) 025 11:52 AM EDT Height - - Body Mass Index 21.46 02/02/2025 3:53 PM EDT documented in this encounter Functional Status * Over the past 2 weeks, how often have you been bothered by any of the following problems? Question Answer Date of Assessment Author Little interest or pleasure in doing things Not at all 03/27/2025 11:53 AM EDT Brittany Ames RN Feeling down, depressed, or hopeless Not at all 03/27/2025 11:53 AM EDT Brittany Ames RN Patient Health Questionnaire -2 Score 0 03/27/2025 11:53 AM EDT Brittany Ames RN * How difficult have these problems made it for you to do your work, take care of things at home, or get along with other people? Answer Date of Assessment Author Not difficult at all 03/27/2025 11:53 AM EDT [place] Brittany mariscal RN documented as of this encounter Miscellaneous Notes * Progress Notes - Librado Soto MD - 03/27/2025 11:15 AM EDT Note Subjective Mallory is a 30 y.o. ( x 3) here for a visit. She delivered 6 w ago via -all [place]. H/O ASCUS pap w/ +HR HPV - 11/2023 Lochia: minimal Feeding method: She is breast feeding exclusively. Contraception: POPs Objective Depression screen: Exam: Visit Vitals BP 125/79 Pulse 81 Pregravid weight: Pregravid weight not on file Weight: 58.5 kg (128 lb 15.5 oz) General: Examination reveals a well developed, well nourished, female, in no acute distress. Recent labs: Lab Results Component Value Date HGB 11.2 (L) 02/12/2025 HGB 12.2 12/14/2024 HCT 34.4 (L) 02/12/2025 HCT 36.8 12/14/2024 Assessment 1. Visit - doing well 2. FP - RX Minipill 3. ASCUS Pap w/ +HR HPV - needs Pap 3 m A total of 20 minutes was spent on this visit with at least more than 50% of the encounter spent incounseling and/or coordinating care including reviewing previous notes, counseling the patient on their identified issues as indicated in the note, discussing previous and/or ordered tests or imaging, prescribing/refilling medications, and documenting the findings in this note, as well as laying out a specific plan of action for this patient. documented in this encounter Plan of Treatment Upcoming Encounters Date Type Department Care Team (Late st Contact Info) Description 06/28/2025 9:00 AM EST Office Visit Obstetrics & Gynecology [address] [place] [address] Librado Soto MD [address] [place] [address] documented as of this encounter Goals Goal Patient Goal Type Associated Problems Recent Progress Patient-Stated? Author Delayed Care Plan CPM S24 PP LABOR (OBSTETRICS) No Open Scheduling, Background documented as of this encounter Visit Diagnoses Diagnosis Routine follow-up- Primary ASCUS with positive high risk HPV cervical Family planning Other general counseling and advice for contraceptive management documented in this encounter Additional Health Concerns Active Problems Noted Date Diagnosed Date CPM S24 PP LABOR (OBSTETRICS) 09/06/2024 Assessment Noted Time PHQ-9 Depression Total Score: 0 02/11/20 9:17 AM EDT A fall risk assessment has been complete d for the patient 03/27/2025 11:53 AM EDT A Body Mass Index follow-up plan has been documented for the patient 03/27/2025 12:01 PM EDT documented as of this encounter Care Teams Legal Referee Relationship Specialty Start Date End Date Oscar Allen MD [address] [facility] [place] [address] PCP - General 12/14/20 documented as of this encounter
--- OUTSIDE RECORDS SUMMARY | 2025-05-26 10:49 | XMS_ITS | Encounter Summary ---
Author Organization [facility] Address [address] [place] [address] Care Team Providers Care Web Graphic Designer Name Role Phone Oscar Allen MD Primary Care Provider [phone] Encounter Details Date Type Department Care Team [...] Recorded Patient Health Questionnaire-9 Score 0 02/10/2025 [place] Depression Scale Answer Date Recorded [place] Depression Scale Total 8 03/27/2025 The thought [...] 11:53 AM EDT Brittany Ames, RN * How difficult have these problems made it for you to do your work, take care of things at home, or get along with other people? Answer Date of Assessment Author Not difficult at all 03/27/2025 11:53 AM EDT OsBrittany merida, RN documented as of this encounter Plan of Treatment Upcoming Encounters Date Type Department Care Team (Late st Contact Info) Description 06/28/2025 9:00 AM EST Office Visit Obstetrics & Gynecology [address] [place] [address] Librado Soto MD [address] [place] [address] documented as of this encounter [...] documented as of this encounter Care Teams Web Graphic Designer Relationship Specialty Start Date End Date Oscar Allen MD [address] [place] [address] PCP - General 12/14/20 documented as of this encounter
--- OUTSIDE RECORDS SUMMARY | 2025-05-26 10:49 | XMS_ITS | Encounter Summary ---
Author Organization [facility] Address [address] [id number] Care Team Providers Care Bathing Suit Maker Name Role Phone Oscar Allen MD Primary Care Provider [phone] Reason for Visit * Reason Comments Med Refill Encounter Details Date Type Department Care Team (Late st Contact Info) Description 11/25/2023 Refill Obstetrics & Gynecology [address] [place] [address] Milvia Jones, RN [address] [place] [address] Social History Tobacco Use Types Packs/Day Years Used Date Smoking Tobacco: Every Day Smokeless Tobacco: Current Comments:Smokes 1 pack of ci garettes per day Alcohol Use Standard Drinks/Week Comments Never 0 (1 standard drink = 0.6 oz pur e alcohol) PHQ-2 Answer Date Recorded Patient Health Questionnaire-2 Score 0 09/26/2022 [place] Depression Scale Answer Date Recorded [place] Depression Scale Total 0 05/16/2022 The thought [...] EST Office Visit Obstetrics & Gynecology [address] [place] [address] Librado Soto MD [address] [place] [address] documented as of this encounter Visit Diagnoses Not on filedocumented in this encounter Additional Health Concerns Assessment Noted Time A fall risk assessment has been complete d for the patient 11/18/2022 9:22 AM EDT documented as of this encounter Care Teams Bathing Suit Maker Relationship Specialty Start Date End Date Oscar Allen MD [address] [place] [address] PCP - General 12/14/20 documented as of this encounter
--- OUTSIDE RECORDS SUMMARY | 2025-05-26 10:50 | XMS_ITS | Clinical Summary ---
Author Organization [facility] Address [address] [place] [address] Care Team Providers Care Stockholder Name Role Phone Oscar Allen MD Primary Care Provider Allergies No known active allergies Medications Vit-Fe [...] mouth daily. 28 tablet 11 5 Active Active Problems Problem Noted Date Diagnosed Date [...] AM EDT Visit Obstetrics & Gynecology [address] [place] [address] Librado Soto MD Routine follow-up (Primary Dx); ASCUS with positive high risk HPV cervical; Family planning 03/27/2025 Travel from Last 3 Months Immunizations Immunization [...] Recorded Patient Health Questionnaire-9 Score 0 02/10/2025 [place] Depression Scale Answer Date Recorded [place] Depression Scale Total 8 03/27/2025 The thought [...] Visit Obstetrics & Gynecology [address] [place] [address] Librado oSto MD [address] [place] [address] Health Maintenance Due Date Last Done Comments [facility]-/Child/Adol SDOH Screenings 1997 [facility]-Hepatitis B Vaccines (2 of 3 - 3-dose series) 12/10/1998 11/12/1998 [facility]-Varicella Vaccines (1 of 2 - 13+ 2-dose series) 2010 [facility]- SDOH Screenings 2015 [facility]-Adult SDOH Screenings 2015 [facility]-Pneumococcal Vaccine: Pediatrics (0 to 5 Years) and At-Risk Patients (6 to 49 Years) (1 of 2 - PCV) 2016 HPV Vaccines (1 - 3-dose SCDM series) 2024 [id number] Vaccine ( - season) 2025 [facility]-Influenza Vaccine (#1) 04/03/202504/17, 06/08/2019, [...] Procedure Name Priority Date/Time Associated Diagnosis Comments HEPATITIS C ANTIBODY W/REFLEX TO HCV QUANT [...] Recently Relevant to Health Maintenance Results * HIV 1 & 2 Antibody/Antigen Screen (07/25/2024 4:18 PM EST) HIV 1 & 2 Antibody/Antigen Screen Non Reactive Non Reactive 07/25/2024 6:25 PM EST [facility] Comment:Screening for HIV 1 & 2 antibodies, and P24 antigen is NONREACTIVE. No confirmatory testing is required. Blood Venous blood specimen / Unknown Venipuncture / Unknown 07/25/2024 4:18 PM EST 07/25/2024 5:46 PM EST Result Moses Soto MD LAB BLOOD ORDERABLES Final Resu lt Performing Organization Address [facility]/[place] [address] * Hepatitis C Antibody (07/25/2024 4:18 PM EST) Hepatitis C Antibody Negative Negative 07/25/2024 6:27 PM EST [facility] Blood Venous blood specimen / Unknown Venipuncture / Unknown 07/25/2024 4:18 PM EST 07/25/2024 5:46 PM EST Result Moses Soto MD LAB BLOOD ORDERABLES Final Resu lt Performing Organization Address City/[facility] [place] [address] * (ABNORMAL) Pap Test (12/01/2023 10:33 AM EDT) Case Report Cytology Case: [id number] Authorizing Provider: Milvia Jones APRN, RADHA Collected: 12/01/2023 1033 Ordering Location: Obstetrics & Gynecology Received: 12/02/2023 1002 First Screen: Lucius Ugalde Pathologist: Mehnaz Fuchs MD Specimen: ThinPrep Pap Test, Liquid-Based Cervical/Vagina l 12/17/2023 5:33 PM EDT [facility] Interpretation ATYPICAL SQUAMOUS CELLS OF UNDETERMINED SIGNIFICANCE (ASCUS)(A) 12/17/2023 5:33 PM EDT [facility] at 1733 EDT Specimen Adequacy Satisfactory for evaluation; endocervical/tr ansformation zone component present. Slide imaged by the ThinPrep Imaging system and selected 22 gomez reviewed then full manual screening. 12/17/2023 5:33 PM EDT [facility] Cervical cytology is a screening test [...] results is suggested (please call Microbiology at [phone] for results). 12/17/2023 5:33 PM EDT [facility] Menstrual Status Cyclic 12/17/19 24 5:33 PM EDT [facility] Contraceptive History control pills 12/17/2023 5:33 PM EDT [facility] Screening Type Routine Screen 2023 5:33 PM EDT [facility] High Risk? No 12/17/2023 5:33 PM EDT [facility] HPV Testing Requested? Request HPV Testing Regardless of Pap Test Findings 12/17/2023 5:33 PM EDT [facility] Previous Cancer History No 12/17/2023 5:33 PM EDT [facility] Clinical Information Z01.419 - Encounter for gynecological examination without abnormal finding [ICD-10-CM] 12/17/2023 5:33 PM EDT [facility] Last Menstrual Period 11/17/2023 12/17/2023 5:33 PM EDT [facility] Swab Vaginal and cervical cytologic material / Unknown Non-blood Collection / Unknown 12/01/2023 10:33 AM EDT 12/02/2023 10:02 AM EDT us Milvia Jones RN LAB CYTOLOGY ORDERABLES Final Result [facility] [address] [place] [id number] from Last 3 Months or Most Recently Relevant to Health Maintenance Additional Health Concerns Active Problems Noted Date Diagnosed Date CPM S24 PP LABOR (OBSTETRICS) 09/06/2024 [facility] Care Teams Stockholder Relationship Specialty Start Date End Date Oscar Allen MD [address] [facility] [place] [address] PCP - General 12/14/20
== END 2025-05-25 23:59 ==
LOC: LAB.DROPOF 05-26 10:43
PROVIDERS: PCP Student in an Organized Health Care Education/Training Program; Visit Provider Student in an Organized Health Care Education/Training Program
DX: R39.9 Unspecified symptoms and signs involving the genitourinary system (principal)
CPT/HCPCS: 87086; 87088